=== PATIENT | female | born 2000 | race African-American/Black ===

== ENCOUNTER 2025-06-21 14:28 | Inpatient (IN) | payer BC, SELFPAY ==
--- NOTE | ~2025-06-21 | XR_ITS ---
EXAMINATION: XR chest 1V portable COMPARISON: No comparisons available. HISTORY: shortness of breath FINDINGS: Small basilar infiltrates and effusions most marked right lower lobe No pneumothorax. Heart is normal size. Mediastinal and hilar contours are within normal limits. Bony thorax no acute abnormality. Miscellaneous: None Impression: Bilateral pneumonia Reviewed, dictated and finalized at location P. Impression: Bilateral pneumonia
--- NOTE | ~2025-06-21 | US_ITS ---
EXAMINATION: US venous doppler [facility] DATE: 06/22/2025 09:38 INDICATION: Lower limb swelling and edema. TECHNIQUE: Grayscale ultrasound images without and with compression and Doppler ultrasound images of the bilateral lower extremity veins were obtained. COMPARISON: None. FINDINGS: The visualized portions of right common femoral vein, profunda (deep) femoral vein, femoral vein, popliteal vein, peroneal veins, posterior tibial veins, and greater saphenous vein outflow are patent. The visualized portions of left common femoral vein, profunda femoral vein, femoral vein, popliteal vein, peroneal veins, posterior tibial veins, and greater saphenous vein outflow are patent. IMPRESSION: 1. No deep venous thrombosis. Reviewed, dictated and finalized at location E.
--- NOTE | ~2025-06-21 | CT_ITS ---
EXAMINATION: CTA chest PE abdomen pel DATE: 06/22/2025 04:50 INDICATION: Shortness of breath. TECHNIQUE: Computed tomography angiography (CTA) of the chest was performed with 100 mL Omnipaque-350 intravenous contrast timed to evaluate the pulmonary arteries. Coronal maximum intensity projection 3D-reconstructions were created by the technologist. Computed tomography (CT) of the abdomen and pelvis was performed with intravenous contrast. Automated exposure control and iterative reconstruction technique were employed. The dose-length product was 1163.00 mGy-cm. COMPARISON: None. FINDINGS: CTA chest: The lungs demonstrate smooth septal thickening and scattered groundglass opacities and small airspace opacities. There is dependent atelectasis bilaterally. There are small pleural effusions. The heart size is normal. There is no pericardial effusion. There is no pulmonary embolus. The bones are unremarkable. CT abdomen and pelvis: Hepatic congestion is noted. Gallbladder wall thickening is likely secondary to interstitial edema. The spleen, pancreas, adrenal glands, and right kidney are normal. 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 There are no dilated loops of bowel. The appendix is normal. There are no pathologically enlarged lymph nodes. There is physiologic fluid in the pelvis. Body wall edema is noted. The bones are unremarkable. IMPRESSION: 1. Diffuse lung disease, consistent with moderate pulmonary edema without or with superimposed pneumonia. 2. Small pleural effusions. 3. No pulmonary embolus. Reviewed, dictated and finalized at location E. IMPRESSION: 1. Diffuse lung disease, consistent with moderate pulmonary edema without or wi th superimposed pneumonia. 2. Small pleural effusions. 3. No pulmonary embolus.
--- NOTE | ~2025-06-21 | US_ITS ---
Examination: Ultrasound of the retroperitoneum including kidneys and bladder. Clinical History: Acute renal failure . Comparison: None available. Findings: Right kidney: 10 cm. Normal echogenicity. No collecting system dilatation. No shadowing calculi. Left kidney: 10 cm. Normal echogenicity. No collecting system dilatation. No shadowing calculi. Urinary bladder: No wall thickening or focal abnormality. Bilateral ureteral jets seen. Pleural effusions. IMPRESSION: 1. No hydronephrosis. Reviewed, dictated and finalized at location R. IMPRESSION: 1. No hydronephrosis.
[2025-06-21 14:40] VITALS: BP 155/95; PULSE 78; RESP 18; TEMP 36.6; O2SAT 96
--- NOTE | 2025-06-21 15:49 | ECG_ITS ---
Test Date: 2025-06-21 15:56:44 Measurements Intervals [place] Rate: 61 P: -2 IN: 118 QRS: 34 QRSD: 74 T: 5 QT: 364 QTc: 367 Interpretive Statements SINUS RHYTHM WITH SHORT IN INTERVAL No previous ECG available for comparison Electronically Signed On 06-22-2025 20:45:36 CDT by Aly Schroeder D.O
--- NOTE | 2025-06-21 15:51 | ED.SOB ---
HPI - SOB/Dyspnea General Chief Complaint: Shortness of Breath/Dyspnea Stated Complaint: BLE AND DYSPNEA Time Seen by Provider: 06/21/25 15:37 Source: patient and RN notes reviewed Mode of arrival: ambulatory Limitations: no limitations History of Present Illness HPI Narrative: This is a 25 year old female previously healthy who presents for evaluation of bilateral ankle swelling and shortness of breath. She has noticed bilateral feet and ankle swelling since Monday , and she states the swelling does not improve with elevation. She reports pain today with walking. She also reports shortness of breath that is worse at night while she is sleeping since Monday. She also reports shortness of breath this morning with talking and getting ready today. She also reports constant chest heaviness since . She denies history of recent URI or fever. She denies history of heart disease. She denies history of drug use. She does admit to alcohol use on the weekends. Onset (ago): day(s) Related Data Allergies Allergy/AdvReac Type Severity Reaction Status Date / Time No Known Allergies Allergy Verified 06/21/25 14:31 COUNT INCLUDES THE [facility] Past Medical History Medical History (Updated 06/21/25 @ 18:06 by Hellen Samson MD) Patient denies medical problems Surgical History Surgical History (Updated 06/21/25 @ 15:57 by Hellen Samson MD) No pertinent past surgical history Social History Social History (Updated 06/21/25 @ 15:57 by Hellen Samson MD) Smoking status: Never smoker Alcohol intake: current Drinks per week: 3 Substance use: never Exam Const: General: no acute distress and alert Nutritional Appearance: well nourished Orientation/consciousness: patient oriented x3 Eyes: EOM: EOMs intact bilaterally Resp: Effort & Inspection: normal respiratory effort Auscultation: diminished lung sounds Cardio: Rate: regular rate Rhythm: regular rhythm Heart sounds: no murmurs GI: GI Palp: Yes Soft to palpation, No Tenderness to palpation present (GI) and No Guarding due to palpation present (GI) Auscultation: normal bowel sounds Skin: General skin exam: normal color Rashes: no rashes Wounds: no wounds Neuro: General: patient oriented x3, moves all extremities and CN's II-XI intact bilaterally Extrem: General: edema (bilateral nonpitting) Psych: Mental Status: mental status grossly normal Course Reevaluation(s) Reevaluation #1: I Discussed with patient and mother that she has signs of CHF. Chest xray shows mild pulmonary edema. She is being given 40 mg IV lasix for diuresis. I explained she will need to be admitted to hospital for further evaluation. Date: 06/21/25 Time: 18:03 Consultations Consultation #1: I Spoke with Naye SALAZAR for hospitalist. She accepts patient to service for new onset CHF Date: 06/21/25 Time: 18:03 Vital Signs Vital signs: Vital Signs Temperature 97.9 F 06/21/25 14:40 Pulse Rate 78 06/21/25 14:40 Respiratory Rate 18 06/21/25 14:40 Blood Pressure 155/95 H 06/21/25 14:40 Pulse Oximetry 96 06/21/25 14:40 Temperature 97.9 F 06/21/25 14:40 Pulse Rate 63 06/21/25 17:25 Respiratory Rate 23 H 06/21/25 17:25 Blood Pressure 171/98 H 06/21/25 17:25 Pulse Oximetry 96 06/21/25 17:25 MDM - SOB/Dyspnea Differential Diagnosis Differential diagnosis: Likely congestive heart failure and pulmonary embolism Lab Data Attestation: I reviewed the patient's lab results. 06/21/25 16:28 06/21/25 16:28 Labs: Lab Results 06/21/25 06/21/25 06/21/25 Range/Units 16:28 17:25 17:27 WBC 13.5 H (4.5-10.0) K/mm3 RBC 3.85 L (4.2-5.4) M/mm3 Hgb 10.0 L (12.0-15.0) g/dL Hct 31.9 L (37.0-47.0) % MCV 82.9 (80-100) fl MCH 26.0 (26-34) pg MCHC 31.3 L (32-36) g/dl RDW 15.2 H (11.5-14.5) % Plt Count 272 (150-375) k/mm3 MPV 10.9 H (7.4-10.4) fl Immature Gran % (Auto) 0.7 H (0-0.5) % Neut % (Auto) 68.8 (45.5-73.1) % Lymph % (Auto) 19.1 (18.3-44.2) % [place] % (Auto) 9.7 H (2.6-8.5) % Eos % (Auto) 1.3 (0-4.4) % Baso % (Auto) 0.4 (0.2-1.2) % Lymph # (Auto) 2.57 (0.9-3.2) K/mm3 [place] # (Auto) 1.3 H (0.1-0.6) K/mm3 Eos # (Auto) 0.2 (0-0.3) K/mm3 Baso # (Auto) 0.1 (0.0-0.1) K/mm3 Abs Immat Gran (auto) 0.10 H (0.00-0.031) K/mm3 Absolute Neuts (auto) 9.2 H (1.3-6.7) K/mm3 Absolute Nucleated RBC 0.000 (0.0-0.012) K/mm3 Nucleated RBC % 0.0 (0.0-0.2) % PT 13.2 (11.1-14.7) Seconds INR 1.0 APTT 34.2 (22.3-36.8) Seconds Sodium 136 L (137-145) mmol/L Potassium 4.2 (3.4-5.0) mmol/L Chloride 110 H (98-107) mmol/L Carbon Dioxide 19 L (22-30) mmol/L Anion Gap 7 (4-12) mmol/L BUN 29 H (7-17) mg/dL Creatinine 1.76 H (0.7-1.0) mg/dL Estim Creat Clear Calc 42 ml/min Estimated GFR 36 L (59 - ) Glucose 95 (65-110) mg/dL Calcium 8.5 (8.4-10.2) mg/dL Magnesium 2.2 (1.6-2.3) mg/dL Total Bilirubin 0.7 (0.2-1.3) mg/dL AST 29 (14-36) U/L ALT 23 (6-35) U/L Alkaline Phosphatase 84 (38-126) U/L Troponin I < 0.012 (0.000-0.034) ng/mL NT-Pro-B Natriuret Pep 2870 H (19.9-100) pg/mL Total Protein 7.7 (6.3-8.2) g/dL Albumin 3.8 (3.5-5.1) g/dL TSH (Reflex) 1.140 (0.465-4.68) uIU/mL Urine Color Pending Urine Appearance Pending Urine pH Pending Ur Specific [place] Pending Urine Protein Pending Urine Glucose (UA) Pending Urine Ketones Pending Ur Blood (Man) Pending Urine Nitrate Pending Urine Bilirubin Pending Urine Urobilinogen Pending Leukocyte Esterase Rfl Pending POC Urine HCG, Qual Negative (Negative) Urine Opiates Screen Negative (Negative) Urine Methadone Screen Negative (Negative) Ur Barbiturates Screen Negative (Negative) Ur Phencyclidine Scrn Negative (Negative) Ur Amphetamine Screen Negative (Negative) U Benzodiazepines Scrn Negative (Negative) Urine Cocaine Screen Negative (Negative) U Cannabinoids Screen Negative (Negative) ECG Data EKG #1: Attestation: I personally reviewed and interpreted this ECG as follows: ECG completion date: 06/21/25 ECG completion time: 15:56 EKG Interpretation: normal rate (61), sinus rhythm, normal QRS and NL axis Critical Care Time Critical Care Time Critical Care Time: Yes Total Critical Care Time: 35 Discharge Plan Discharge Clinical Impression: New onset of congestive heart failure Patient Disposition: Still a Patient Condition: Stable Patient Language: Slovak Follow-up/Referrals: PHYSICIAN NOT ON STAFF,NONSTAFF [Primary Care Provider]
[2025-06-21 15:58] VITALS: PULSE 77
[2025-06-21 16:40] LABS: Hematocrit 31.9 % (37.0-47.0); Hemoglobin 10.0 g/dL (12.0-15.0); Immature Granulocyte Percent A 0.7 % (0-0.5); Lymphocytes Absolute Auto 2.57 K/mm3 (0.9-3.2); Mean Corpuscular HGB Conc 31.3 g/dl (32-36); Mean Corpuscular Hemoglobin 26.0 pg (26-34); Mean Corpuscular Volume 82.9 fl (80-100); Nucleated Red Blood Cells Absolute Auto 0.000 K/mm3 (0.0-0.012); Nucleated Red Blood Cells Perc 0.0 % (0.0-0.2); Platelet Count Result 272 k/mm3 (150-375); Red Blood Count 3.85 M/mm3 (4.2-5.4); White Blood Count 13.5 K/mm3 (4.5-10.0)
[2025-06-21 16:44] LABS: INR 1.0; Partial Thromboplastin Time 34.2 Seconds (22.3-36.8); Prothrombin Time 13.2 Seconds (11.1-14.7)
[2025-06-21 16:48] LABS: Alanine Aminotransferase 23 U/L (6-35); Albumin Level 3.8 g/dL (3.5-5.1); Alkaline Phosphatase 84 U/L (38-126); Anion Gap 7 mmol/L (4-12); Aspartate Amino Transferase 29 U/L (14-36); Bilirubin,Total 0.7 mg/dL (0.2-1.3); Blood Urea Nitrogen 29 mg/dL (7-17); Calcium 8.5 mg/dL (8.4-10.2); Carbon Dioxide 19 mmol/L (22-30); Chloride 110 mmol/L (98-107); Estimated CRCL calculation 42 ml/min; Estimated Glomerular Filt Rate 36; Glucose 95 mg/dL (65-110); Magnesium 2.2 mg/dL (1.6-2.3); Potassium 4.2 mmol/L (3.4-5.0); Sodium 136 mmol/L (137-145); Total Protein 7.7 g/dL (6.3-8.2)
[2025-06-21 17:01] LABS: NT Pro B Type Natriuretic Pept 2870 pg/mL (19.9-100); Troponin I < 0.012 ng/mL (0.000-0.034)
[2025-06-21 17:19] LABS: Thyroid Stimulating Hormone Reflex 1.140 uIU/mL (0.465-4.68)
[2025-06-21 17:25] VITALS: BP 171/98; PULSE 63; RESP 23; O2SAT 96
[2025-06-21] MEDS: FUROSEMIDE INJ 40 MG/4 ML VIAL IV PUSH (17:26)
[2025-06-21 17:29] LABS: BEDSIDEPREGUCG Negative (Negative)
[2025-06-21 17:56] LABS: Cannabinoid Screen Urine Negative (Negative)
[2025-06-21 18:08] LABS: Add Urine Microscopic? YES; Appearance Urine Turbid (Clear); Glucose Urine UA Negative (Negative); Leukocyte Esterase Ur 3+ LEU/UL (Negative); Nitrate Urine Negative (Negative); Non Pathogenic Casts >20; Specific Grav Ur 1.033 (1.001-1.035)
[2025-06-21 20:51] VITALS: BP 142/99; PULSE 74; RESP 22; O2SAT 98
[2025-06-21 21:35] VITALS: BP 155/73; PULSE 76; RESP 18; TEMP 36.6; O2SAT 95
[2025-06-21 21:52] VITALS: BMI 37.4
--- NOTE | 2025-06-21 22:29 | ECG_ITS ---
Test Date: 2025-06-21 22:40:06 Measurements Intervals [place] Rate: 73 P: 52 [place]: 128 QRS: 27 QRSD: 90 T: 5 QT: 362 QTc: 401 Interpretive Statements SINUS RHYTHM Electronically Signed On 06-22-2025 20:48:08 CDT by Aly Schroeder D.O
[2025-06-21 23:27] LABS: CRP 5.9 mg/dL (<1.0); Creatine Kinase 142 U/L (30-135)
[2025-06-21 23:27] LABS: Troponin I < 0.012 ng/mL (0.000-0.034)
[2025-06-21] MEDS: MORPHINE SULFATE (*CRX) 4 MG/ML INJ 2 MG IV PUSH (23:27)
[2025-06-22] VITALS (9 sets, daily range): BP systolic 133–164; BP diastolic 79–87; PULSE 71–89; RESP 16–18; TEMP 36.3–37.6; O2SAT 93–94
--- NOTE | 2025-06-22 01:00 | PM.IMHP ---
H&P: HPI History of Present Illness Date/Time: 06/22/25 01:00 Chief Complaint: Shortness of breath breath and leg swelling for 3 days Narrative: 25 year female with no known past medical history of obesity who presented to the ER with 3 days of shortness of breath and lower extremity swelling. The patient provided the majority history. Her mother was at bedside with the patient's permission. The patient reports that on Monday night she started with some shortness of breath with activity. On she developed acute swelling of her lower extremities and by early Monday morning she developed orthopnea paroxysmal nocturnal dyspnea. Her legs continued to swell to the point that her ankles were painful due to being tight. She stated that between and Monday she began having generalized body aches and just hurt all over. She denied having any fevers or chills. She denies any recent viral symptoms, sore throat antibiotic or NSAID use. She did develop a mild cough but only after orthopnea and paroxysmal nocturnal dyspnea had set in. She did buy some [id number] Mucinex which did not help her symptoms. She reports that her chest feels tight like she cannot take a deep breath but denies any true chest pain. In the ER her troponin was negative chest x-ray was suggestive of pulmonary edema. BMP demonstrated acute kidney injury. Her UA demonstrated 3+ proteinuria. She denied any change in urinary frequency urgency and denied hematuria or foamy urine. She reports tachycardia it started after her shortness of breath had gotten severe. Despite not sleeping well and her symptoms she still went to work. She reports some headache but no vision changes. She has regular menstrual cycles with her last menstrual stool cycle starting on June 01 in lasting 5 days. She reports that her menstrual cycles start out moderate to heavy saturating 5-6 pads a day but he is off for dizzy and. The patient reports that the only other time she has ever been hospitalized when she was around 14 or 16 years old when she had a cyst that ruptured in her abdomen. I am assuming that she had a ovarian cyst. Both her and her mother stated that the patient did not have any surgery for that. Review of Systems Review of Systems: 12 systems were reviewed with pertinent positives and negatives per HPI. Except as documented in the HPI, all other systems were reviewed and are negative. [facility] Past Medical History Medical History (Updated 06/22/25 @ 15:42 by Zenia Izquierdo MD) Obesity (BMI 30.0-34.9) Surgical History Surgical History (Updated 06/22/25 @ 08:48 by Millicent Faye DO) No history of previous surgery Social History Social History (Updated 06/22/25 @ 09:14 by Millicent Faye DO) Social History: She is single. She does not have any children. She lives at home with her mother. She works as a blood bank worker. She drinks heavily on the weekends up to a pint and drinks several shots throughout the course of the week. She smokes Hooka once week or once every other week. She denies illicit substance use. Code status: Full code Surrogate decision maker: Mother Smoking status: Current some day smoker Additional smoking assessment comments: Hookah once or twice a week. Alcohol intake: current Drinks per week: 9 Alcohol use details: The patient drinks about a pt or more of alcohol during the course of a week. She she drinks quite heavily on the weekends and drinks a couple of shots throughout the week. Substance use: never Substance use type: does not use Lack of Transportation: YES Lack of Food: Never True Current Housing: I Have Housing Concerned About Future Housing: No Difficulty Paying Gas/Electric Bills: No Difficulty Paying for Meds: No Currently Unemployed: No Education: High School Diploma/GED Difficulty w/ Childcare or Family Care: No Spiritual care concerns: No Meds Home Medications and Allergies Home Medications ?Medication ?Instructions ?Recorded ?Confirmed ?Type No Home Medications 06/21/25 06/21/25 History Allergies Allergy/AdvReac Type Severity Reaction Status Date / Time No Known Allergies Allergy Verified 06/21/25 21:51 Vital Signs Vital Signs - 24 hr 06/21/25 14:40 06/21/25 15:58 06/21/25 17:25 Temperature 97.9 F Pulse Rate 78 77 63 Respiratory Rate 18 23 H Blood Pressure 155/95 H 171/98 H Pulse Oximetry 96 96 Oxygen Delivery 06/21/25 20:50 06/21/25 20:51 06/21/25 21:35 Temperature 97.8 F Pulse Rate 74 76 Respiratory Rate 22 H 18 Blood Pressure 142/99 H 155/73 H Pulse Oximetry 98 95 Oxygen Delivery Room Air Exam Narrative: Weight 89.8 kg BMI 37.4 Const: Other: Obese, no acute distress, well groomed, appears stated age HENMT: Other: Mucous membranes are moist, no oral pharyngeal erythema, crowded posterior oropharynx Eyes: Other: No periorbital edema, pupils are equal and reactive, no scleral icterus Neck: Other: No JVD, no lymphadenopathy, large neck circumference Resp: Other: Clear to auscultation bilaterally, no increased work of breathing Cardio: Other: Regular rate, regular rhythm, 2+ bilateral radial pedal pulses, no JVD GI: Other: Distended, hepatomegaly, soft, abdominal wall edema, nontender Skin: Other: No jaundice, no pallor, had a tattoo to the right wrist and hand Neuro: Other: Alert oriented x4, speech clear, no facial asymmetry, no localizing neurologic deficits noted during the course of conversation Extrem: Other: 1+ pitting edema to bilateral ankles and feet Psych: Other: Appropriate mood and affect, pleasant and cooperative, judgment insight intact H&P: Results Labs Labs: Laboratory Tests 06/21/25 16:28 06/21/25 16:28 06/21/25 06/21/25 06/21/25 16:28 17:25 17:27 WBC 13.5 H RBC 3.85 L Hgb 10.0 L Hct 31.9 L MCV 82.9 MCH 26.0 MCHC 31.3 L RDW 15.2 H Plt Count 272 MPV 10.9 H Immature Gran % (Auto) 0.7 H Neut % (Auto) 68.8 Lymph % (Auto) 19.1 [place] % (Auto) 9.7 H Eos % (Auto) 1.3 Baso % (Auto) 0.4 Lymph # (Auto) 2.57 [place] # (Auto) 1.3 H Eos # (Auto) 0.2 Baso # (Auto) 0.1 Abs Immat Gran (auto) 0.10 H Absolute Neuts (auto) 9.2 H Absolute Nucleated RBC 0.000 Nucleated RBC % 0.0 ESR PT 13.2 INR 1.0 APTT 34.2 D-Dimer Sodium 136 L Potassium 4.2 Chloride 110 H Carbon Dioxide 19 L Anion Gap 7 BUN 29 H Creatinine 1.76 H Estim Creat Clear Calc 42 Estimated GFR 36 L Glucose 95 Calcium 8.5 Phosphorus Magnesium 2.2 Total Bilirubin 0.7 AST 29 ALT 23 Alkaline Phosphatase 84 Total Creatine Kinase Troponin I < 0.012 C-Reactive Protein NT-Pro-B Natriuret Pep 2870 H Total Protein 7.7 Albumin 3.8 TSH (Reflex) 1.140 Urine Color Dark yellow Urine Appearance Turbid H Urine pH 5.5 Ur Specific [place] 1.033 Urine Protein 3+ H Urine Glucose (UA) Negative Urine Ketones 1+ H Ur Blood (Man) 3+ H Urine Nitrate Negative Urine Bilirubin 1+ H Urine Urobilinogen 1.0 Leukocyte Esterase Rfl 3+ H Urine RBC 11-20 H Urine WBC >100 H Ur Squamous Epith Cells Moderate Urine Bacteria 1+ H Urine Casts >20 WBC Casts Present H POC Urine HCG, Qual Negative Urine Opiates Screen Negative Urine Methadone Screen Negative Ur Barbiturates Screen Negative Ur Phencyclidine Scrn Negative Ur Amphetamine Screen Negative U Benzodiazepines Scrn Negative Urine Cocaine Screen Negative U Cannabinoids Screen Negative 06/21/25 06/21/25 22:53 22:57 WBC RBC Hgb Hct MCV MCH MCHC RDW Plt Count MPV Immature Gran % (Auto) Neut % (Auto) Lymph % (Auto) [place] % (Auto) Eos % (Auto) Baso % (Auto) Lymph # (Auto) [place] # (Auto) Eos # (Auto) Baso # (Auto) Abs Immat Gran (auto) Absolute Neuts (auto) Absolute Nucleated RBC Nucleated RBC % ESR 50 H PT INR APTT D-Dimer 1.34 H Sodium Potassium Chloride Carbon Dioxide Anion Gap BUN Creatinine Estim Creat Clear Calc Estimated GFR Glucose Calcium Phosphorus 5.0 H Magnesium Total Bilirubin AST ALT Alkaline Phosphatase Total Creatine Kinase 142 H Troponin I < 0.012 C-Reactive Protein 5.9 H NT-Pro-B Natriuret Pep Total Protein Albumin TSH (Reflex) Urine Color Urine Appearance Urine pH Ur Specific [place] Urine Protein Urine Glucose (UA) Urine Ketones Ur Blood (Man) Urine Nitrate Urine Bilirubin Urine Urobilinogen Leukocyte Esterase Rfl Urine RBC Urine WBC Ur Squamous Epith Cells Urine Bacteria Urine Casts WBC Casts POC Urine HCG, Qual Urine Opiates Screen Urine Methadone Screen Ur Barbiturates Screen Ur Phencyclidine Scrn Ur Amphetamine Screen U Benzodiazepines Scrn Urine Cocaine Screen U Cannabinoids Screen Impressions Chest X-Ray 06/21/25 16:29 Impression: Bilateral pneumonia Assessment and Plan Assessment and plan (1) New onset of congestive heart failure: Code(s): I50.9 - Heart failure, unspecified Status: Acute (2) Acute kidney injury: Code(s): N17.9 - Acute kidney failure, unspecified Status: Acute (3) Proteinuria: Qualifiers: Proteinuria type: unspecified Qualified Code(s): R80.9 - Proteinuria, unspecified Code(s): R80.9 - Proteinuria, unspecified Status: Acute (4) Leukocytosis: Qualifiers: Leukocytosis type: unspecified Qualified Code(s): D72.829 - Elevated white blood cell count, unspecified Code(s): D72.829 - Elevated white blood cell count, unspecified Status: Acute (5) Elevated blood pressure reading: Code(s): R03.0 - Elevated blood-pressure reading, without diagnosis of hypertension Status: Acute (6) Pleural effusion: Code(s): J90 - Pleural effusion, not elsewhere classified Status: Acute (7) Hepatomegaly: Code(s): R16.0 - Hepatomegaly, not elsewhere classified Status: Acute Plan The patient presents with new onset pleural effusions and lower extremity edema concerning for CHF. On my review the x-ray she does not have overt cardiomegaly. High EKG does not demonstrate any evidence of cardiac ischemia and troponins were negative. Patient has not had any recent viral symptoms to suggest myocarditis. CK is mildly elevated and patient has associated acute kidney injury with 3+ proteinuria. Given these factors I did check inflammatory markers including ESR and CRP which were elevated as well as an elevated D-dimer. In this setting in given the patient's acute onset of symptoms her age and lab findings suspicious for acute autonomic process. Such as lupus, vasculitis or glomerular nephritis. Postinfectious or infectious endocarditis or glomerular nephritis could also be a possibility but patient does not have any murmur, fevers, chills, history of IV drug use that would make her at increased risk. Subsequently autoimmune workup has been ordered including antinuclear antibody, anti glomerular douglas basement membrane anti double-stranded DNA, antineutrophil antibodies complement levels, urine, immunofixation, rheumatoid factor, SM and SM ALLEY CLEANER antibody. The patient's D-dimer was elevated with an the patient was reporting abdominal distension uploading. Subsequently CT a chest abdomen pelvis has been ordered. Stat read interpretation was not yet available at the end of my shift but on my review of the imaging the patient had bilateral pleural effusions with findings consistent with pulmonary edema no obvious large pulmonary embolism, likely hepatomegaly and possible splenomegaly and relatively normal appearing kidneys. No obvious pneumonia to suggest acute infection but will still check antistreptolysin antibodies. Also check for urine eosinophils. Renal ultrasound has been ordered but cannot be performed due to the weekend. Will consult Nephrology. Patient was started on IV Lasix the patient is a lower extremity swelling has improved but she still is reporting significant orthopnea paroxysmal nocturnal dyspnea. Will continue IV Lasix 40 mg IV b.i.d. and strict I&O's. Echocardiogram has been ordered 0 will not be performed until Monday. As the primary cause of the patient's heart failure is not likely due to cardiac ischemia or cardiac arrhythmia no need to consult Cardiology immediately. We need to treat the underlying cause I evaluating underlying autoimmune process. Patient does have anemia in baseline hemoglobin is not unknown. Will check ferritin, TIBC, B12 and folic acid levels. Will repeat CBC and electrolyte panel in a.m.. Over 2 hours was spent in patient care with greater than 50% of time at the bedside discussing plan and management with the patient and her mother. All questions were answered. Patient has been admitted as observation status. MEDICAL DECISION MAKING NARRATIVE -Spoke with the ED provider in detail regarding patient's evaluation, workup and management -Patient seen and examined at bedside -Collaborated with patient's nurse at the bedside in detail and addressed all concerns -Labs, electrolytes, radiology, investigations and test results personally reviewed and interpreted unless otherwise specified -ED/Consult/Nursing/Ancilliary notes on the chart reviewed and appreciated -Spoke with patient at bedside and diagnosis and plan of care was discussed. All questions answered. Quality VTE Prophylaxis VTE prophylaxis: pharmacologic ordered (Lovenox 40 mg subQ daily.) Hospitalist [facility] Advance Care Plan I have confirmed that the patient's Advanced Care Plan is present, code status is documented, or surrogate decision maker is listed in patient medical record.: Yes Medication Reconciliation I have utilized all available resources to obtain, update and review the patients current medications (includes all prescriptions, OTC, herbals, cannabis, and nutritional supplements).: Yes
[2025-06-22 06:42] LABS: Hematocrit 29.3 % (37.0-47.0); Hemoglobin 9.1 g/dL (12.0-15.0); Mean Corpuscular HGB Conc 31.1 g/dl (32-36); Mean Corpuscular Hemoglobin 26.2 pg (26-34); Mean Corpuscular Volume 84.4 fl (80-100); Platelet Count Result 279 k/mm3 (150-375); Red Blood Count 3.47 M/mm3 (4.2-5.4); White Blood Count 12.3 K/mm3 (4.5-10.0)
[2025-06-22 06:50] LABS: HIV 1/2 Ab P24 Ag Result Negative (Negative)
[2025-06-22 07:02] LABS: Albumin Level 3.1 g/dL (3.5-5.1); Anion Gap 8 mmol/L (4-12); Blood Urea Nitrogen 30 mg/dL (7-17); Calcium 8.0 mg/dL (8.4-10.2); Carbon Dioxide 18 mmol/L (22-30); Chloride 108 mmol/L (98-107); Estimated CRCL calculation 49 ml/min; Estimated Glomerular Filt Rate 39; Glucose 89 mg/dL (65-110); Potassium 4.3 mmol/L (3.4-5.0); Sodium 134 mmol/L (137-145)
[2025-06-22 08:23] LABS: Hepatitis B Surface Antigen Negative (Negative)
[2025-06-22 08:28] LABS: Hepatitis B Core IgM Result Negative (Negative)
[2025-06-22 08:40] LABS: Hepatitis B Surface Anti Res Negative
[2025-06-22] MEDS: FUROSEMIDE INJ 40 MG/4 ML VIAL IV PUSH ×2 (08:43→20:04)
[2025-06-22] MEDS: ENOXAPARIN 40 MG/0.4 ML SYRINGE SUB-Q (08:43)
[2025-06-22] MEDS: ACETAMINOPHEN 325 MG TABLET 650 MG PO (08:47)
[2025-06-22 09:31] LABS: Urine Eos QC 2nd Tech Confirmed
[2025-06-22 09:40] LABS: Iron 19 ug/dL (37-170)
[2025-06-22 09:50] LABS: Percent Iron Saturation 6 % (20-50)
[2025-06-22 10:12] LABS: Vitamin B12 413.0 pg/mL (239-931)
[2025-06-22 10:21] LABS: Ferritin 35.50 ng/mL (6.24-137)
[2025-06-22 10:58] LABS: Total Protein Urine Random 53 mg/dL; Ur Ttl Prot Creatinine Ratio 0.21 mg/mg (0-0.20)
[2025-06-22 11:00] LABS: Urea Random Urine 771 MG/DL
--- NOTE | 2025-06-22 11:18 | P.CONNP_ITS ---
Assessment and Plan Assessment and plan (1) Acute kidney injury: Code(s): N17.9 - Acute kidney failure, unspecified Status: Acute Assessment and Plan: * presumably normal baseline renal function * etiology not clear: * new CHF * inflammatory disorder (autoimmune disease/vasculitis/glomerulonephritis?) * other(?) * evaluation to date noted: * renal ultrasound normal * urine electrolytes prerenal * urine eosinophils negative * UA with blood and protein along with possible infection * only 210mg of proteinuria * elevated ESR and CRP * low C3, and negative RF * majority of serologies pending * depending on trend of creatinine and serological testing, may need to consider renal biopsy * follow trend of repeat labs and UOP (2) Volume overload: Code(s): E87.70 - Fluid overload, unspecified Status: Acute Assessment and Plan: * etiology(?): * due to CHF * from kidney failure * other(?) * follow-up on Echo * on IV diuretics * follow I/Os, clinical exam, and respiratory status (3) Pleural effusion: Code(s): J90 - Pleural effusion, not elsewhere classified Status: Acute Assessment and Plan: * as noted on admission imaging * follow serial CXRs (4) New onset of congestive heart failure: Code(s): I50.9 - Heart failure, unspecified Status: Acute Assessment and Plan: * suggested by admission imaging/testing/exam: * CXR/CT with pleural effusions and pulmonary edema * elevated BNP * LE edema present * SOB with orthopnea + PND * Echo ordered * on IV diuretics * follow I/Os and daily weights * consider Cardiology consultation depending on Echo results... (5) Anemia: Code(s): D64.9 - Anemia, unspecified Status: Acute Assessment and Plan: * due to renal dysfunction versus acute ilness... * anemia studies consistent with iron deficiency * follow trend of H/H (6) Urinary tract infection: Code(s): N39.0 - Urinary tract infection, site not specified Status: Acute Assessment and Plan: * admission UA suggestive * however, no clinical symptoms * follow culture data * holding off on antibiotic therapy (7) Elevated blood pressure reading: Code(s): R03.0 - Elevated blood-pressure reading, without diagnosis of hypertension Status: Acute Assessment and Plan: * as noted on admission * may improve with diuresis * follow trend of hemodynamics (8) Leukocytosis: Qualifiers: Leukocytosis type: unspecified Qualified Code(s): D72.829 - Elevated white blood cell count, unspecified Code(s): D72.829 - Elevated white blood cell count, unspecified Status: Acute Assessment and Plan: * due to possible underlying infection versus stress response? * follow culture data * r/o infection * no antibiotics at this time I will continue to follow the patient with you while she remains hospitalized and make further recommendations as deemed necessary. Thank you for allowing me to participate in the care of this patient. L History of Present Illness Reason for Consult Consult date: 06/22/25 Reason for consult: acute renal failure Chief Complaint Chief complaint: New onset CHF History of Present Illness Narrative: The patient is a 25-year-old female with no significant past medical history who presented to [facility] Emergency Room with complaints of shortness of breath. The patient states that her shortness of breath seemed to start approximately 3 - 4 days ago. Initially, the shortness of breath was present with exertional activity but then progressed to shortness of breath at rest. Her shortness of breath was associated with acute swelling of her lower extremities and then the development of orthopnea as well as paroxysmal nocturnal dyspnea. Her lower extremities continued to swell to the point where she had pain / discomfort due to skin tightness. Other associated symptoms include generalized body aches but no reported fevers, chills, nausea, vomiting, abdominal pain, or diarrhea. Along with the shortness of breath at rest as well as with exertion, she also complains of some chest tightness and having difficulty taking a deep breath as well. Do these constellation of symptoms as well as the fact that they seem to be progressively getting worse, she came to the ER for further assessment Workup and evaluation emergency room demonstrated the patient to be hemodynamically stable if not a bit hypertensive (150s to 170 systolic) and afebrile with stable oxygenation. Routine blood test demonstrated white blood cell count of 13.5, hemoglobin 10.0, platelet count of 272, sodium 136, potassium 4.2, bicarb 19, BUN 29, creatinine 1.76, glucose 95, calcium 8.5, magnesium 2.2, normal LFTs, normal troponin, proBNP of 2870, and albumin of 3.8. Her urine drug screen was negative and her urinalysis was significant for turbid appearance, 3+ protein, 3+ blood, 1+ ketones, 1+ bilirubin, greater than 100 white blood cells, 11-20 red blood cells, 1+ bacteria, in the presence of white blood cell casts. Her chest x-ray showed small basilar infiltrates and effusions most marked in the right lower lobe concerning for bilateral pneumonia. A subsequent CTA of the chest/abdomen/pelvis was done with findings significant for diffuse lung disease consistent with moderate pulmonary edema with or without superimposed pneumonia, small pleural effusions, and no evidence of a pulmonary embolism. given these laboratory and imaging findings in association with her physical exam with bibasilar crackles and nonpitting lower extremity edema, it was felt that she was in CHF and she was initiated on IV diuretic therapy and subsequently admitted to the hospital for further evaluation and therapy. Since her admission, her renal function has slightly improved in spite of the use of IV diuretics but there is concern that there may be some type of inflammatory disorder affecting her kidneys given her elevated inflammatory markers (ESR and CRP) in conjunction with her proteinuria and hematuria by urinalysis. Renal consultation was requested due to her presumed acute kidney injury/acute renal failure. As far as the patient is aware, she has never had any issues or problems her kidneys or Desi never been told as such. Unfortunately, I have no previous labs to compare to with regard to her kidney function. Her admission creatinine was 1.76 mg/dL with repeat labs this morning demonstrated creatinine of 1.65 mg/dL in spite of IV diuretic therapy. She states that her breathing appears to be doing somewhat better since her admission. A significant serological workup has been ordered given the concern for possible inflammatory disorder within her kidneys and a great deal of these tests are still pending. Furthermore, given the concern for CHF, an echocardiogram has been ordered as well for further assessment. Currently, at the time my evaluation, she appears to be in no acute distress. She states her swelling/edema is better but still has some PYLE. Review of Systems 2 Review of Systems: As per HPI. [facility] Past Medical History Medical History (Updated 06/22/25 @ 15:42 by Zenia Izquierdo MD) Obesity (BMI 30.0-34.9) Surgical History Surgical History (Updated 06/22/25 @ 08:48 by Millicent Faye DO) No history of previous surgery Social History Social History (Updated 06/22/25 @ 09:14 by PEREZ Solano Social History: She is single. She does not have any children. She lives at home with her mother. She works as a personal banking assistant. She drinks heavily on the weekends up to a pint and drinks several shots throughout the course of the week. She smokes Hooka once week or once every other week. She denies illicit substance use. Code status: Full code Surrogate decision maker: Mother Smoking status: Current some day smoker Additional smoking assessment comments: Hookah once or twice a week. Alcohol intake: current Drinks per week: 9 Alcohol use details: The patient drinks about a pt or more of alcohol during the course of a week. She she drinks quite heavily on the weekends and drinks a couple of shots throughout the week. Substance use: never Substance use type: does not use Lack of Transportation: YES Lack of Food: Never True Current Housing: I Have Housing Concerned About Future Housing: No Difficulty Paying Gas/Electric Bills: No Difficulty Paying for Meds: No Currently Unemployed: No Education: High School Diploma/GED Difficulty w/ Childcare or Family Care: No Spiritual care concerns: No Meds Home Medications and Allergies Home Medications ?Medication ?Instructions ?Recorded ?Confirmed ?Type No Home Medications 06/21/25 06/21/25 H istory Allergies Allergy/AdvReac Type Severity Reaction Status Date / Time No Known Allergies Allergy Verified 06/21/25 21:51 Vital Signs Vital Signs Temp Pulse Resp BP Pulse Ox O2 Del Method 06/22/25 08:00 71 06/22/25 06:15 97.3 F L 88 18 164/87 H 94 06/22/25 04:00 77 06/22/25 00:00 79 06/21/25 21:35 97.8 F 76 18 155/73 H 95 06/21/25 20:51 74 22 H 142/99 H 98 06/21/25 20:50 Room Air 06/21/25 17:25 63 23 H 171/98 H 96 06/21/25 15:58 77 Exam 2 Narrative: GENERAL APPEARANCE: well developed well nourished female in no acute distress HEENT: normocephalic, atraumatic, normal conjunctiva and sclera, nares patient NECK: no lymphadenopathy, thyromegaly, or JVD MOUTH: normal lips, teeth, and gums CARDIOVASCULAR: RRR, normal S1 and S2, no rub RESPIRATORY: decreased at bases with a few crackles noted ABDOMEN: soft, nontender, nondistended, positive bowel sounds present EXTREMITIES: no evidence of cyanosis, clubbing, ++ edema NEUROLOGICAL: alert and oriented x 3; CN II - XII intact bilaterally; no focal deficits noted Results Lab Results 06/22/25 06:08 06/22/25 06:10 Lab results: Most recent lab results Calcium 8.0 mg/dL (8.4-10.2) L 06/22/25 06:10 Phosphorus 5.5 mg/dL (2.5-4.5) H 06/22/25 06:10 Magnesium 2.2 mg/dL (1.6-2.3) 06/21/25 16:28 Urine Creatinine 252.4 mg/dL 06/22/25 09:55
--- NOTE | 2025-06-22 16:09 | PM.IMPN ---
Progress Note: A&P Assessment and Plan (1) Volume overload: Code(s): E87.70 - Fluid overload, unspecified Status: Acute Assessment and Plan: The patient presents with SOB and fluid overload. CXR showing bilateral PNA CTA Ch/Abd/pelvis showing diffuse lung disease c/w pulm edema and possible PNA with small pleural effusions, No PE. EKG showing short MO interval but otherwise normal Troponin negative x2. BNP 2870. TCK 142. No recent viral symptoms to suggest myocarditis. Could be related to ERIC. Echo ordered. Patient started on IV Lasix. UOP not being measured. Strict I/Os. Daily weights. Consider cardiology consult. (2) Acute kidney injury: Code(s): N17.9 - Acute kidney failure, unspecified Status: Acute Assessment and Plan: Cr elevated at 1.76 with BUN 29. Metabolic nongap acidosis noted felt related to under secretion of acids most likely. UA showing 3+ protein, 1+ ketones, 3+ blood (11=20 RBCs), 3+ LE, >100 WBC. UPreg negative. UPr/Cr 0.21gm. FEurea 17%. HIV negative. Hepatitis panel negative. C3 <40 and C4 27. RF <12. UDS negative. PT/PTT normal. ESR 50. DDimer positive at 1.34 -> CTA negative for PE; Doppler negative for DVT. DAWN, ANCA, etc pending. Consider SLE, post-strep GN, IgA nephropathy, rapidly progressive GN. Vasculitis induced GN. Consider also infectious endocarditis Renal US showing normal findings. Nephrlogy consult. patietn will need renal biopsy. Check BCx. (3) Proteinuria: Qualifiers: Proteinuria type: unspecified Qualified Code(s): R80.9 - Proteinuria, unspecified Code(s): R80.9 - Proteinuria, unspecified Status: Acute Assessment and Plan: As above (4) Leukocytosis: Qualifiers: Leukocytosis type: unspecified Qualified Code(s): D72.829 - Elevated white blood cell count, unspecified Code(s): D72.829 - Elevated white blood cell count, unspecified Status: Acute Assessment and Plan: WBC elevated on admission. UA noted and would consider UTI bit she denies symptoms. WBC better on repeat. Check BCx Hold off on abx (5) Elevated blood pressure reading: Code(s): R03.0 - Elevated blood-pressure reading, without diagnosis of hypertension Status: Acute Assessment and Plan: BP noted on admission felt related to above. Lasix started with good UOP BP better Follow (6) Anemia: Code(s): D64.9 - Anemia, unspecified Status: Acute Assessment and Plan: Patient with Hgb 10 on admission. Not clear if she has a baseline anemia and/or related to above. B12/Folate normal. Iron low at 19, normal TIBC and ISat 6%. Ferritin low end of normal at 35 consisent with iron deficiency anemia. Follow HH for now Transfuse to stable Hgb Plan DVT Prophylaxis - lovenox Code status - full Subjective Date/time seen: 06/22/25 16:09 Interval history: 25 year female with no known past medical history of obesity who presented to the ER with 3 days of shortness of breath and lower extremity swelling. No recent illnesses. No recent abx use. Has 'whle bod' pain and headache. Ankle tightness is better today. Still PYLE when walking back from the bathroom. Noted increasing UOP. No gross hematuria. No family hx of kidney disease. Exam Narrative: AF 97.3 133/81 80 16 93% ra Gen - NARD Chest - decreased BS in the bases. CV - RRR S1/S2 Abd - Soft, NT/ND, Positive BS Ext - No pedal edema Neuro - Alert and oriented. Nonfocal exam. Psych - Nml mood and affect Skin - Warm and dry Objective Data Vital Signs Vital Signs: Vital Signs - 24 hr 06/21/25 17:25 06/21/25 20:50 06/21/25 20:51 Temperature Pulse Rate 63 74 Respiratory Rate 23 H 22 H Blood Pressure 171/98 H 142/99 H Pulse Oximetry 96 98 Oxygen Delivery Room Air 06/21/25 21:35 06/22/25 00:00 06/22/25 04:00 Temperature 97.8 F Pulse Rate 76 79 77 Respiratory Rate 18 Blood Pressure 155/73 H Pulse Oximetry 95 Oxygen Delivery 06/22/25 06:15 06/22/25 08:00 06/22/25 12:00 Temperature 97.3 F L Pulse Rate 88 71 89 Respiratory Rate 18 Blood Pressure 164/87 H Pulse Oximetry 94 Oxygen Delivery 06/22/25 13:50 Temperature 97.3 F L Pulse Rate 80 Respiratory Rate 16 Blood Pressure 133/81 Pulse Oximetry 93 Oxygen Delivery Intake/Output Intake/Output: Intake & Output 06/19/25 06/20/25 06/21/25 06/22/25 23:59 23:59 23:59 23:59 Intake Total 350 Balance 350 Meds/Results Medications: Active Medications Generic Name Dose Route Start Last Admin Trade Name Freq PRN Reason Stop Dose Admin Acetaminophen 650 mg 06/21/25 23:24 06/22/25 08:47 Acetaminophen 325 Mg Tablet PO 650 mg Q4H PRN Administration Mild Pain (1-3) or Fever Calcium Carbonate 200 mg 06/21/25 23:24 Calcium Carbonate (Tums) 500 Mg (200 Mg Elemental) PO Q6H PRN Indigestion Enoxaparin Sodium 40 mg 06/22/25 09:00 06/22/25 08:43 Enoxaparin 40 Mg/0.4 Ml Syringe SUB-Q 40 mg DAILY SHANTELL Administration Furosemide 40 mg 06/22/25 09:00 06/22/25 08:43 Furosemide Inj 40 Mg/4 Ml Vial IV PUSH 40 mg Q12HR SHANTELL Administration Morphine Sulfate 2 mg 06/21/25 22:46 06/21/25 23:27 Morphine Sulfate (*Crx) 4 Mg/Ml Inj IV PUSH 2 mg Q4H PRN Administration Pain Rated 7-10 Perflutren Lipid Microsphere 0 ml 06/21/25 17:58 Perflutren Lipid Microspheres 1.5 Ml Vial Diluted To 10 Ml Total Volume IV PUSH 06/24/25 18:01 ONCE PRN adequate visualization Protocol Radiology Results: ITS Impressions Chest X-Ray 06/21/25 16:29 Impression: Bilateral pneumonia Chest/Abdomen/Pelvis CTA 06/22/25 08:22 IMPRESSION: 1. Diffuse lung disease, consistent with moderate pulmonary edema without or with superimposed pneumonia. 2. Small pleural effusions. 3. No pulmonary embolus. Venous Doppler Study 06/22/25 09:38 IMPRESSION: 1. No deep venous thrombosis. Renal Ultrasound 06/22/25 09:39 IMPRESSION: 1. No hydronephrosis. Labs Labs: Laboratory Results - last 24 hr 06/21/25 06/21/25 06/21/25 16:28 17:25 17:27 WBC 13.5 H RBC 3.85 L Hgb 10.0 L Hct 31.9 L MCV 82.9 MCH 26.0 MCHC 31.3 L RDW 15.2 H Plt Count 272 MPV 10.9 H Immature Gran % (Auto) 0.7 H Neut % (Auto) 68.8 Lymph % (Auto) 19.1 [facility] % (Auto) 9.7 H Eos % (Auto) 1.3 Baso % (Auto) 0.4 Lymph # (Auto) 2.57 [facility] # (Auto) 1.3 H Eos # (Auto) 0.2 Baso # (Auto) 0.1 Abs Immat Gran (auto) 0.10 H Absolute Neuts (auto) 9.2 H Absolute Nucleated RBC 0.000 Nucleated RBC % 0.0 ESR PT 13.2 INR 1.0 APTT 34.2 D-Dimer Sodium 136 L Potassium 4.2 Chloride 110 H Carbon Dioxide 19 L Anion Gap 7 BUN 29 H Creatinine 1.76 H Estim Creat Clear Calc 42 Estimated GFR 36 L Glucose 95 Serum Osmolality Calcium 8.5 Phosphorus Magnesium 2.2 Iron TIBC % Saturation Ferritin Total Bilirubin 0.7 AST 29 ALT 23 Alkaline Phosphatase 84 Total Creatine Kinase Troponin I < 0.012 C-Reactive Protein NT-Pro-B Natriuret Pep 2870 H Total Protein 7.7 Albumin 3.8 Vitamin B12 Folate TSH (Reflex) 1.140 Urine Color Dark yellow Urine Appearance Turbid H Urine pH 5.5 Ur Specific [place] 1.033 Urine Protein 3+ H Urine Glucose (UA) Negative Urine Ketones 1+ H Ur Blood (Man) 3+ H Urine Nitrate Negative Urine Bilirubin 1+ H Urine Urobilinogen 1.0 Leukocyte Esterase Rfl 3+ H Urine RBC 11-20 H Urine WBC >100 H Ur Squamous Epith Cells Moderate Urine Bacteria 1+ H Urine Casts >20 WBC Casts Present H Urine Eosinophils None seen Ur Random Creatinine U Random Total Protein Ur Random Sodium 14 Ur Random Urea Urine Total Volume Urine Creatinine > 693.0 Protein/Creatinin Ratio Protein/Creat Ratio 2 Urine Albumin U Roqjh-5-Lmknxmcd U Efmeu-5-Zwzxdmoc U Beta Globulin U Gamma Globulin U Abnormal Prot Band 1 U Abnormal Prot Band 2 U Abnormal Prot Band 3 Urine PEP Interpret POC Urine HCG, Qual Negative Urine Opiates Screen Negative Urine Methadone Screen Negative Ur Barbiturates Screen Negative Ur Phencyclidine Scrn Negative Ur Amphetamine Screen Negative U Benzodiazepines Scrn Negative Urine Cocaine Screen Negative U Cannabinoids Screen Negative Rheumatoid Factor Complement C3 Complement C4 Hep Bs Antigen Hep Bs Antibody Hep B Core IgM Ab Hepatitis C Ab Screen HIV 1&2 Ab/P24 Ag 4thGn Miscellaneous Test 06/21/25 06/21/25 06/22/25 22:53 22:57 06:01 WBC RBC Hgb Hct MCV MCH MCHC RDW Plt Count MPV Immature Gran % (Auto) Neut % (Auto) Lymph % (Auto) [facility] % (Auto) Eos % (Auto) Baso % (Auto) Lymph # (Auto) [facility] # (Auto) Eos # (Auto) Baso # (Auto) Abs Immat Gran (auto) Absolute Neuts (auto) Absolute Nucleated RBC Nucleated RBC % ESR 50 H PT INR APTT D-Dimer 1.34 H Sodium Potassium Chloride Carbon Dioxide Anion Gap BUN Creatinine Estim Creat Clear Calc Estimated GFR Glucose Serum Osmolality Calcium Phosphorus 5.0 H Magnesium Iron TIBC % Saturation Ferritin Total Bilirubin AST ALT Alkaline Phosphatase Total Creatine Kinase 142 H Troponin I < 0.012 C-Reactive Protein 5.9 H NT-Pro-B Natriuret Pep Total Protein Albumin Vitamin B12 Folate TSH (Reflex) Urine Color Urine Appearance Urine pH Ur Specific [place] Urine Protein Urine Glucose (UA) Urine Ketones Ur Blood (Man) Urine Nitrate Urine Bilirubin Urine Urobilinogen Leukocyte Esterase Rfl Urine RBC Urine WBC Ur Squamous Epith Cells Urine Bacteria Urine Casts WBC Casts Urine Eosinophils Ur Random Creatinine U Random Total Protein Ur Random Sodium Ur Random Urea Urine Total Volume Urine Creatinine Protein/Creatinin Ratio Protein/Creat Ratio 2 Urine Albumin U Pibdv-1-Mlbdlruf U Ynuzl-0-Avfwjndg U Beta Globulin U Gamma Globulin U Abnormal Prot Band 1 U Abnormal Prot Band 2 U Abnormal Prot Band 3 Urine PEP Interpret POC Urine HCG, Qual Urine Opiates Screen Urine Methadone Screen Ur Barbiturates Screen Ur Phencyclidine Scrn Ur Amphetamine Screen U Benzodiazepines Scrn Urine Cocaine Screen U Cannabinoids Screen Rheumatoid Factor Complement C3 Complement C4 Hep Bs Antigen Hep Bs Antibody Hep B Core IgM Ab Hepatitis C Ab Screen HIV 1&2 Ab/P24 Ag 4thGn Miscellaneous Test Cancelled 06/22/25 06/22/25 06/22/25 06:08 06:10 06:16 WBC 12.3 H RBC 3.47 L Hgb 9.1 L Hct 29.3 L MCV 84.4 MCH 26.2 MCHC 31.1 L RDW 15.3 H Plt Count 279 MPV 10.9 H Immature Gran % (Auto) Neut % (Auto) Lymph % (Auto) [facility] % (Auto) Eos % (Auto) Baso % (Auto) Lymph # (Auto) [facility] # (Auto) Eos # (Auto) Baso # (Auto) Abs Immat Gran (auto) Absolute Neuts (auto) Absolute Nucleated RBC Nucleated RBC % ESR PT INR APTT D-Dimer Sodium 134 L Potassium 4.3 Chloride 108 H Carbon Dioxide 18 L Anion Gap 8 BUN 30 H Creatinine 1.65 H Estim Creat Clear Calc 49 Estimated GFR 39 L Glucose 89 Serum Osmolality Cancelled Calcium 8.0 L Phosphorus 5.5 H Magnesium Iron 19 L TIBC 330 % Saturation 6 L Ferritin 35.50 Total Bilirubin AST ALT Alkaline Phosphatase Total Creatine Kinase Troponin I C-Reactive Protein NT-Pro-B Natriuret Pep Total Protein Albumin 3.1 L Vitamin B12 413.0 Folate 5.3 TSH (Reflex) Urine Color Urine Appearance Urine pH Ur Specific [place] Urine Protein Urine Glucose (UA) Urine Ketones Ur Blood (Man) Urine Nitrate Urine Bilirubin Urine Urobilinogen Leukocyte Esterase Rfl Urine RBC Urine WBC Ur Squamous Epith Cells Urine Bacteria Urine Casts WBC Casts Urine Eosinophils Ur Random Creatinine U Random Total Protein Ur Random Sodium Ur Random Urea Urine Total Volume Urine Creatinine Protein/Creatinin Ratio Protein/Creat Ratio 2 Urine Albumin U Vxpoy-6-Tfdwgxgn U Qabmj-0-Fctubkqw U Beta Globulin U Gamma Globulin U Abnormal Prot Band 1 U Abnormal Prot Band 2 U Abnormal Prot Band 3 Urine PEP Interpret POC Urine HCG, Qual Urine Opiates Screen Urine Methadone Screen Ur Barbiturates Screen Ur Phencyclidine Scrn Ur Amphetamine Screen U Benzodiazepines Scrn Urine Cocaine Screen U Cannabinoids Screen Rheumatoid Factor < 12.0 Complement C3 < 40 L Complement C4 26.7 Hep Bs Antigen Negative Hep Bs Antibody Negative Hep B Core IgM Ab Negative Hepatitis C Ab Screen Negative HIV 1&2 Ab/P24 Ag 4thGn Miscellaneous Test 06/22/25 06/22/25 06/22/25 09:55 09:55 09:59 WBC RBC Hgb Hct MCV MCH MCHC RDW Plt Count MPV Immature Gran % (Auto) Neut % (Auto) Lymph % (Auto) [facility] % (Auto) Eos % (Auto) Baso % (Auto) Lymph # (Auto) [facility] # (Auto) Eos # (Auto) Baso # (Auto) Abs Immat Gran (auto) Absolute Neuts (auto) Absolute Nucleated RBC Nucleated RBC % ESR PT INR APTT D-Dimer Sodium Potassium Chloride Carbon Dioxide Anion Gap BUN Creatinine Estim Creat Clear Calc Estimated GFR Glucose Serum Osmolality Calcium Phosphorus Magnesium Iron TIBC % Saturation Ferritin Total Bilirubin AST ALT Alkaline Phosphatase Total Creatine Kinase Troponin I C-Reactive Protein NT-Pro-B Natriuret Pep Total Protein Albumin Vitamin B12 Folate TSH (Reflex) Urine Color Urine Appearance Urine pH Ur Specific [place] Urine Protein Urine Glucose (UA) Urine Ketones Ur Blood (Man) Urine Nitrate Urine Bilirubin Urine Urobilinogen Leukocyte Esterase Rfl Urine RBC Urine WBC Ur Squamous Epith Cells Urine Bacteria Urine Casts WBC Casts Urine Eosinophils Ur Random Creatinine Cancelled U Random Total Protein 53 Cancelled Cancelled Ur Random Sodium Ur Random Urea 771 Urine Total Volume Cancelled Urine Creatinine 252.4 Protein/Creatinin Ratio Cancelled Protein/Creat Ratio 2 0.21 H Urine Albumin Cancelled U Zsdxc-3-[place]og Cancelled U Cvbah-2-Mokevvrl Cancelled U Beta Globulin Cancelled U Gamma Globulin Cancelled U Abnormal Prot Band 1 Cancelled U Abnormal Prot Band 2 Cancelled U Abnormal Prot Band 3 Cancelled Urine PEP Interpret Cancelled POC Urine HCG, Qual Urine Opiates Screen Urine Methadone Screen Ur Barbiturates Screen Ur Phencyclidine Scrn Ur Amphetamine Screen U Benzodiazepines Scrn Urine Cocaine Screen U Cannabinoids Screen Rheumatoid Factor Complement C3 Complement C4 Hep Bs Antigen Hep Bs Antibody Hep B Core IgM Ab Hepatitis C Ab Screen HIV 1&2 Ab/P24 Ag 4thGn Miscellaneous Test 06/22/25 22:53 WBC RBC Hgb Hct MCV MCH MCHC RDW Plt Count MPV Immature Gran % (Auto) Neut % (Auto) Lymph % (Auto) [facility] % (Auto) Eos % (Auto) Baso % (Auto) Lymph # (Auto) [facility] # (Auto) Eos # (Auto) Baso # (Auto) Abs Immat Gran (auto) Absolute Neuts (auto) Absolute Nucleated RBC Nucleated RBC % ESR PT INR APTT D-Dimer Sodium Potassium Chloride Carbon Dioxide Anion Gap BUN Creatinine Estim Creat Clear Calc Estimated GFR Glucose Serum Osmolality Calcium Phosphorus Magnesium Iron TIBC % Saturation Ferritin Total Bilirubin AST ALT Alkaline Phosphatase Total Creatine Kinase Troponin I C-Reactive Protein NT-Pro-B Natriuret Pep Total Protein Albumin Vitamin B12 Folate TSH (Reflex) Urine Color Urine Appearance Urine pH Ur Specific [place] Urine Protein Urine Glucose (UA) Urine Ketones Ur Blood (Man) Urine Nitrate Urine Bilirubin Urine Urobilinogen Leukocyte Esterase Rfl Urine RBC Urine WBC Ur Squamous Epith Cells Urine Bacteria Urine Casts WBC Casts Urine Eosinophils Ur Random Creatinine U Random Total Protein Ur Random Sodium Ur Random Urea Urine Total Volume Urine Creatinine Protein/Creatinin Ratio Protein/Creat Ratio 2 Urine Albumin U Eqjno-5-Iniohvrh U Mftck-5-Fpgtoyhr U Beta Globulin U Gamma Globulin U Abnormal Prot Band 1 U Abnormal Prot Band 2 U Abnormal Prot Band 3 Urine PEP Interpret POC Urine HCG, Qual Urine Opiates Screen Urine Methadone Screen Ur Barbiturates Screen Ur Phencyclidine Scrn Ur Amphetamine Screen U Benzodiazepines Scrn Urine Cocaine Screen U Cannabinoids Screen Rheumatoid Factor Complement C3 Complement C4 Hep Bs Antigen Hep Bs Antibody Hep B Core IgM Ab Hepatitis C Ab Screen HIV 1&2 Ab/P24 Ag 4thGn Negative Miscellaneous Test
[2025-06-23] VITALS (10 sets, daily range): BP systolic 147–157; BP diastolic 88–90; PULSE 72–81; RESP 16; TEMP 36.7–37.1; O2SAT 94–97
--- NOTE | 2025-06-23 06:00 | ECHO_ITS ---
Patient Info Name: Deena Rogers Age: 25 years : 2000 Gender: Female Ht: 61 in Wt: 197 lbs BSA: 2.01 m2 HR: 72 bpm BP: 137 / 79 mmHg Technical Quality: Good Exam Date: 06/23/2025 12:06 PM Patient Status: I Admit Date: 06/23/2025 Exam Type: CA echo doppler color flow Complete two-dimensional, color flow and Doppler transthoracic echocardiogram is performed. Staff Referring Physician: Millicent Faye DO Circulation Sales Representative: Osvaldo Martinez III Attending Provider: Alireza Lopez MD Summary 1. Complete two-dimensional, color flow and Doppler transthoracic echocardiogram is performed. 2. Left ventricular systolic function is normal, estimated at 65-70. 3. The left ventricular diastolic function is normal. 4. There is mild pulmonic regurgitation. 5. There is trivial pericardial effusion. Left Ventricle Left ventricular chamber dimension is normal. Left ventricular systolic function is normal, estimated at 65-70. There is no increased left ventricular wall thickness. Left ventricular septal wall motion is normal. The left ventricular diastolic function is normal. Right Ventricle Right ventricular chamber dimension is normal. Right ventricular systolic function is normal. Left Atria Left atrial chamber dimension is normal. Right Atria Right atrial chamber dimension is normal. Aortic Valve The aortic valve is trileaflet. There is no aortic valve sclerosis. There is no aortic valve stenosis. There is no aortic valve regurgitation. Pulmonic Valve The pulmonic valve is normal. There is no pulmonic valve stenosis. There is mild pulmonic regurgitation. Mitral Valve The mitral valve has normal leaflets. There is no mitral valve stenosis. There is no mitral valve regurgitation. Tricuspid Valve The tricuspid valve leaflets are normal. There is no significant tricuspid valve stenosis. There is no tricuspid valve regurgitation. Pericardium/Pleural The pericardium appears normal. There is trivial pericardial effusion. Inferior Vena Cava Normal inferior vena cava with >50% collapse upon inspiration consistent with normal right atrial pressure, 5 mmHg. Aorta The aortic root size at the sinus of Valsalva is normal. The prox ascending aorta size is normal. Left Ventricular Outflow Tract Name Value Normal LVOT 2D LVOT Diameter 2.0 cm LVOT Doppler LVOT Peak Velocity 177 cm/s LVOT Peak Gradient 12 mmHg LVOT Mean Gradient 5 mmHg LVOT VTI 32 cm LVOT VTI/AV VTI Ratio 0.8 LVOT Stroke Volume 106 ml LVOT CO 7.4 l/min LVOT CI 3.7 l/min/m2 Pulmonic Valve Name Value Normal PV Doppler PV Peak Velocity 111 cm/s PV Peak Gradient 5 mmHg PV Mean Gradient 3 mmHg PV Regurgitation Doppler MD Peak End Diastolic Velocity 112 cm/s Mitral Valve Name Value Normal MV Doppler MV Peak Gradient 6 mmHg MV Mean Gradient 2 mmHg MV Area (Cont Eq VTI) 3.6 cm2 MV Diastolic Function MV E Peak Velocity 141 cm/s MV A Peak Velocity 107 cm/s MV E/A 1.3 MV Decel Time (PW) 185 ms MV Annular TDI MV E/e' (Septal) 11.6 MV E/e' (Lateral) 10.2 MV E/e' (Average) 10.9 Tricuspid Valve Name Value Normal Estimated PAP/RSVP RA Pressure 5 mmHg <=5 TV Annular TDI TV Lateral Dary s' Velocity 16.8 cm/s >=9.5 Aortic Valve Name Value Normal AV Doppler AV Peak Velocity 206 cm/s AV Peak Gradient 17 mmHg AV Mean Gradient 8 mmHg AV VTI 39 cm AV Area (Cont Eq VTI) 2.7 cm2 >=3.0 AV Area (Cont Eq Savage) 2.8 cm2 AV DI (Savage) 0.86 AV Regurgitation 2D LVOT Area 3.3 cm2 Ventricles Name Value Normal LV Dimensions 2D/MM IVS Diastolic Thickness (2D) 1.0 cm 0.6-1.0 LVID Diastole (2D) 4.4 cm 3.8-5.2 LVIW Diastolic Thickness (2D) 0.9 cm 0.6-0.9 LVID Systole (2D) 2.6 cm 2.2-3.5 LVOT Diameter 2.0 cm LV Mass (2D Cubed) 131.92 g 67.00-162.00 LV Mass Index (2D Cubed) 66 g/m2 43-95 Relative Wall Thickness (2D) 0.39 <=0.42 LV Fractional Shortening/Ejection Fraction 2D/MM LV Fractional Shortening (2D) 41 % 27-45 LV EF (2D Teichholz) 72 % LV Diastolic Volume (4C MOD) 102 ml LV EF (4C MOD) 72 % LV Diastolic Volume (2C MOD) 87 ml LV EF (2C MOD) 72 % LV Diastolic Volume (BP MOD) 97 ml 46-106 LV Diastolic Volume Index (BP MOD) 49 ml/m2 29-61 LV Systolic Volume (BP MOD) 27 ml 14-42 LV Systolic Volume Index (BP MOD) 13 ml/m2 8-24 LV EF (BP MOD) 72 % 54-74 LV Diastolic Length (4C) 7.9 cm LV Systolic Length (4C) 5.7 cm LV Stroke Volume (4C MOD) 73 ml Atria Name Value Normal LA Dimensions LA Volume (4C A-L) 54 ml LA Volume (BP A-L) 59 ml RA Dimensions RA Systolic Major Hancock Length (4C) 5.1 cm 2.2-2.8 RA Area (4C) 17.2 cm2 <=18.0 Report Signatures
[2025-06-23 06:06] LABS: Hematocrit 31.1 % (37.0-47.0); Hemoglobin 9.8 g/dL (12.0-15.0); Immature Granulocyte Percent A 0.5 % (0-0.5); Lymphocytes Absolute Auto 2.92 K/mm3 (0.9-3.2); Mean Corpuscular HGB Conc 31.5 g/dl (32-36); Mean Corpuscular Hemoglobin 26.1 pg (26-34); Mean Corpuscular Volume 82.9 fl (80-100); Nucleated Red Blood Cells Absolute Auto 0.000 K/mm3 (0.0-0.012); Nucleated Red Blood Cells Perc 0.0 % (0.0-0.2); Platelet Count Result 311 k/mm3 (150-375); Red Blood Count 3.75 M/mm3 (4.2-5.4); White Blood Count 13.0 K/mm3 (4.5-10.0)
[2025-06-23 06:30] LABS: Alanine Aminotransferase 20 U/L (6-35); Albumin Level 3.4 g/dL (3.5-5.1); Alkaline Phosphatase 83 U/L (38-126); Anion Gap 8 mmol/L (4-12); Aspartate Amino Transferase 38 U/L (14-36); Bilirubin,Total 0.6 mg/dL (0.2-1.3); Blood Urea Nitrogen 30 mg/dL (7-17); Calcium 8.2 mg/dL (8.4-10.2); Carbon Dioxide 19 mmol/L (22-30); Chloride 108 mmol/L (98-107); Creatine Kinase 101 U/L (30-135); Estimated CRCL calculation 59 ml/min; Estimated Glomerular Filt Rate 49; Glucose 84 mg/dL (65-110); Magnesium 2.3 mg/dL (1.6-2.3); Potassium 4.1 mmol/L (3.4-5.0); Sodium 135 mmol/L (137-145); Total Protein 7.0 g/dL (6.3-8.2)
[2025-06-23] MEDS: FUROSEMIDE INJ 40 MG/4 ML VIAL IV PUSH ×2 (08:51→21:05)
[2025-06-23] MEDS: FERROUS SULFATE 325 MG TABLET PO ×2 (08:51→16:22)
[2025-06-23] MEDS: ENOXAPARIN 40 MG/0.4 ML SYRINGE SUB-Q (08:51)
[2025-06-23 11:08] LABS: Anticardiolipin Ab,IgG,Qn <9 GPL U/mL (0-14); Anticardiolipin Ab,IgM,Qn 10 MPL U/mL (0-12)
--- NOTE | 2025-06-23 14:25 | PM.IMPN ---
Progress Note: A&P Assessment and Plan (1) Volume overload: Code(s): E87.70 - Fluid overload, unspecified Status: Acute Assessment and Plan: The patient presents with SOB and fluid overload. CXR showing bilateral PNA CTA Ch/Abd/pelvis showing diffuse lung disease c/w pulm edema and possible PNA with small pleural effusions, No PE. EKG showing short SD interval but otherwise normal Troponin negative x2. BNP 2870. TCK 142. No recent viral symptoms to suggest myocarditis or post-strep. Could be related to ERIC. Echo normal with EF 65-70% and normal diastolic fxn. Patient started on IV Lasix. UOP not being measured. Weights not acurate. Follow her clinically. (2) Acute kidney injury: Code(s): N17.9 - Acute kidney failure, unspecified Status: Acute Assessment and Plan: Cr elevated at 1.76 with BUN 29. Metabolic nongap acidosis noted felt related to under secretion of acids and ketones UA showing 3+ protein, 1+ ketones, 3+ blood (11=20 RBCs), 3+ LE, >100 WBC. UPreg negative. UPr/Cr 0.21gm. FEurea 17%. HIV negative. Hepatitis panel negative. Total Comp <18, C3 <40 and C4 27. RF <12. UDS negative. PT/PTT normal. ESR 50. DDimer positive at 1.34 --> CTA negative for PE; Doppler negative for DVT. 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 ANCA panel negative. ds-DNA, anti-cardiolipin Ab negative. Consider SLE, post-strep GN, IgA nephropathy, rapidly progressive GN. Vasculitis induced GN. Renal US showing normal findings. BCx pending Nephrology consult. patietn will need renal biopsy. (3) Proteinuria: Qualifiers: Proteinuria type: unspecified Qualified Code(s): R80.9 - Proteinuria, unspecified Code(s): R80.9 - Proteinuria, unspecified Status: Acute Assessment and Plan: As above (4) Leukocytosis: Qualifiers: Leukocytosis type: unspecified Qualified Code(s): D72.829 - Elevated white blood cell count, unspecified Code(s): D72.829 - Elevated white blood cell count, unspecified Status: Acute Assessment and Plan: WBC elevated on admission. UA noted and would consider UTI bit she denies symptoms. WBC elevated but stable. BCx pending UCx pending Hold off on abx (5) Elevated blood pressure reading: Code(s): R03.0 - Elevated blood-pressure reading, without diagnosis of hypertension Status: Acute Assessment and Plan: BP noted on admission felt related to fluid overload Lasix started with good UOP BP better and will follow for now (6) Anemia: Code(s): D64.9 - Anemia, unspecified Status: Acute Assessment and Plan: Patient with Hgb 10 on admission. Not clear if she has a baseline anemia and/or related to above. B12/Folate normal. Iron low at 19, normal TIBC and ISat 6%. Ferritin low end of normal at 35 consisent with iron deficiency anemia. Iron added. Follow HH for now Transfuse to stable Hgb Plan DVT Prophylaxis - lovenox Code status - full Subjective Date/time seen: 06/23/25 14:25 Interval history: 25 year female with no known past medical history of obesity who presented to the ER with 3 days of shortness of breath and lower extremity swelling. She slept poorly last night has a shortness of breath. She still short of breath if she lies flat. She also short of breath with conversation. Dyspnea on exertion is better. Exam Narrative: AF 98.0 151/90 81 16 97% ra Gen - NARD Chest - decreased BS in the bases. CV - RRR S1/S2 Abd - Soft, NT/ND, Positive BS Ext - No pedal edema Neuro - Alert and oriented. Nonfocal exam. Psych - Nml mood and affect Skin - Warm and dry Objective Data Vital Signs Vital Signs: Vital Signs - 24 hr 06/22/25 16:00 06/22/25 20:00 06/22/25 22:00 Temperature 99.7 F H Pulse Rate 73 72 79 Respiratory Rate 16 Blood Pressure 137/79 Pulse Oximetry 94 Oxygen Delivery 06/23/25 00:00 06/23/25 03:43 06/23/25 06:00 Temperature 98.6 F Pulse Rate 78 72 76 Respiratory Rate 16 Blood Pressure 157/88 H Pulse Oximetry 94 Oxygen Delivery 06/23/25 08:01 06/23/25 09:01 06/23/25 12:05 Temperature Pulse Rate 74 74 Respiratory Rate 16 Blood Pressure Pulse Oximetry 94 Oxygen Delivery Room Air 06/23/25 14:00 Temperature 98.0 F Pulse Rate 81 Respiratory Rate 16 Blood Pressure 151/90 H Pulse Oximetry 97 Oxygen Delivery Intake/Output Intake/Output: Intake & Output 06/20/25 06/21/25 06/22/25 06/23/25 23:59 23:59 23:59 23:59 Intake Total 1999 870 Balance 1999 870 Meds/Results Medications: Active Medications Generic Name Dose Route Start Last Admin Trade Name Freq PRN Reason Stop Dose Admin Acetaminophen 650 mg 06/21/25 23:24 06/22/25 08:47 Acetaminophen 325 Mg Tablet PO 650 mg Q4H PRN Administration Mild Pain (1-3) or Fever Calcium Carbonate 200 mg 06/21/25 23:24 Calcium Carbonate (Tums) 500 Mg (200 Mg Elemental) PO Q6H PRN Indigestion Enoxaparin Sodium 40 mg 06/22/25 09:00 06/23/25 08:51 Enoxaparin 40 Mg/0.4 Ml Syringe SUB-Q 40 mg DAILY SHANTELL Administration Ferrous Sulfate 325 mg 06/23/25 09:00 06/23/25 08:51 Ferrous Sulfate 325 Mg Tablet PO 325 mg BID SHANTELL Administration Furosemide 40 mg 06/22/25 09:00 06/23/25 08:51 Furosemide Inj 40 Mg/4 Ml Vial IV PUSH 40 mg Q12HR SHANETLL Administration Morphine Sulfate 2 mg 06/21/25 22:46 06/21/25 23:27 Morphine Sulfate (*Crx) 4 Mg/Ml Inj IV PUSH 2 mg Q4H PRN Administration Pain Rated 7-10 Perflutren Lipid Microsphere 0 ml 06/21/25 17:58 Perflutren Lipid Microspheres 1.5 Ml Vial Diluted To 10 Ml Total Volume IV PUSH 06/24/25 18:01 ONCE PRN adequate visualization Protocol Radiology Results: ITS Impressions Chest X-Ray 06/21/25 16:29 Impression: Bilateral pneumonia Chest/Abdomen/Pelvis CTA 06/22/25 08:22 IMPRESSION: 1. Diffuse lung disease, consistent with moderate pulmonary edema without or with superimposed pneumonia. 2. Small pleural effusions. 3. No pulmonary embolus. Venous Doppler Study 06/22/25 09:38 IMPRESSION: 1. No deep venous thrombosis. Renal Ultrasound 06/22/25 09:39 IMPRESSION: 1. No hydronephrosis. Labs Labs: Laboratory Results - last 24 hr 06/22/25 06/22/2525 06:01 06:07 06:09 WBC RBC Hgb Hct MCV MCH MCHC RDW Plt Count MPV Immature Gran % (Auto) Neut % (Auto) Lymph % (Auto) [place] % (Auto) Eos % (Auto) Baso % (Auto) Lymph # (Auto) [place] # (Auto) Eos # (Auto) Baso # (Auto) Abs Immat Gran (auto) Absolute Neuts (auto) Absolute Nucleated RBC Nucleated RBC % Sodium Potassium Chloride Carbon Dioxide Anion Gap BUN Creatinine Estim Creat Clear Calc Estimated GFR Glucose Calcium Phosphorus Magnesium Total Bilirubin AST ALT Alkaline Phosphatase Total Creatine Kinase Total Protein Albumin Cryoglobulin % Cryoglobulin Qualit c-ANCA Antibody <1:20 Atypical p-ANCA <1:20 p-ANCA Antibody <1:20 Sm (Kessler) Antibody Cancelled SM/APPLICATIONS PROGRAMMER ANALYST IgG Antibody Cancelled Double Strand DNA Ab Glomerular Base Memb Ab Anti-Cardiolipin IgG Ab Anti-Cardiolipin IgM Ab Tot Complement (CH50) <18 L Miscellaneous Test Comment 06/22/25 06/22/25 06/23/25 06:16 09:03 05:42 WBC 13.0 H RBC 3.75 L Hgb 9.8 L Hct 31.1 L MCV 82.9 MCH 26.1 MCHC 31.5 L RDW 15.1 H Plt Count 311 MPV 11.3 H Immature Gran % (Auto) 0.5 Neut % (Auto) 64.2 Lymph % (Auto) 22.4 [place] % (Auto) 10.0 H Eos % (Auto) 2.5 Baso % (Auto) 0.4 Lymph # (Auto) 2.92 [place] # (Auto) 1.3 H Eos # (Auto) 0.3 Baso # (Auto) 0.1 Abs Immat Gran (auto) 0.06 H Absolute Neuts (auto) 8.4 H Absolute Nucleated RBC 0.000 Nucleated RBC % 0.0 Sodium 135 L Potassium 4.1 Chloride 108 H Carbon Dioxide 19 L Anion Gap 8 BUN 30 H Creatinine 1.35 H Estim Creat Clear Calc 59 Estimated GFR 49 L Glucose 84 Calcium 8.2 L Phosphorus 5.4 H Magnesium 2.3 Total Bilirubin 0.6 AST 38 H ALT 20 Alkaline Phosphatase 83 Total Creatine Kinase 101 Total Protein 7.0 Albumin 3.4 L Cryoglobulin % Cancelled Cryoglobulin Qualit Cancelled c-ANCA Antibody Atypical p-ANCA p-ANCA Antibody Sm (Kessler) Antibody SM/APPLICATIONS PROGRAMMER ANALYST IgG Antibody Double Strand DNA Ab <1 Glomerular Base Memb Ab Cancelled Anti-Cardiolipin IgG Ab <9 Anti-Cardiolipin IgM Ab 10 Tot Complement (CH50) Miscellaneous Test
--- NOTE | 2025-06-23 15:01 | P.PNNP_ITS ---
Progress Note: A&P Assessment and Plan (1) Acute kidney injury: Code(s): N17.9 - Acute kidney failure, unspecified Status: Acute Assessment and Plan: * presumably normal baseline renal function * etiology not clear: * new CHF * inflammatory disorder (autoimmune disease/vasculitis/glomerulonephritis?) * other(?) * evaluation to date noted: * renal ultrasound normal * urine electrolytes prerenal * urine eosinophils negative * serologies as noted * UA with blood and protein along with possible infection * only 210mg of proteinuria * elevated ESR and CRP * serologies testing to date: * HIV negative * hepatitis panel negative * C4 normal, C3 and CH50 low * ANCA negative * DAWN pending but dsDNA-Ab negative * 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 * follow trend of repeat labs and UOP (2) Volume overload: Code(s): E87.70 - Fluid overload, unspecified Status: Acute Assessment and Plan: * etiology(?): * due to CHF * from kidney failure * other(?) * CHF suggested by admission imaging/testing/exam: * CXR/CT with pleural effusions and pulmonary edema * elevated BNP * LE edema present * SOB with orthopnea + PND * however, Echo results noted: * left ventricular systolic function is normal, estimated at 65 - 70% * left ventricular diastolic function is normal * no aortic valve stenosis or regurgitation * no mitral valve stenosis or regurgitation * no tricuspidvalve stenosis or regurgitation. * mild pulmonic regurgitation * trivial pericardial effusion * on IV diuretics * follow I/Os, daily weights, and clinical exam (3) Pleural effusion: Code(s): J90 - Pleural effusion, not elsewhere classified Status: Acute Assessment and Plan: * as noted on admission imaging * follow serial CXRs and respiratory status (4) Anemia: Code(s): D64.9 - Anemia, unspecified Status: Acute Assessment and Plan: * due to renal dysfunction versus acute ilness... * anemia studies consistent with iron deficiency * started on oral iron * follow trend of H/H (5) Urinary tract infection: Code(s): N39.0 - Urinary tract infection, site not specified Status: Acute Assessment and Plan: * admission UA suggestive * however, no clinical symptoms * follow culture data * holding off on antibiotic therapy (6) Elevated blood pressure reading: Code(s): R03.0 - Elevated blood-pressure reading, without diagnosis of hypertension Status: Acute Assessment and Plan: * as noted on admission * may improve with diuresis * follow trend of hemodynamics (7) Leukocytosis: Qualifiers: Leukocytosis type: unspecified Qualified Code(s): D72.829 - Elevated white blood cell count, unspecified Code(s): D72.829 - Elevated white blood cell count, unspecified Status: Acute Assessment and Plan: * due to possible underlying infection inflammatory response? * follow culture data * r/o infection * holding antibiotics at this time Will continue to follow. L Subjective Date/time seen: 06/23/25 15:01 Interval history: Follow-up for acute kidney injury/acute renal failure. Still reports shortness of breath with at rest and when laying flat causing difficulty sleeping last night; however, shortness of breath with exertion has improved; swelling/edema in LEs seems better at this time; renal function/creatinine remains the same; otherwise, no apparent distress noted. Exam 2 Narrative: General: WD/WN female in NAD Heart: normal S1 and S2; no rub Lungs: decreased at bases Abdomen: soft, nontender, nondistended, positive bowel sounds Extremities: no cyanosis or clubbing; trace edema Skin: warm and dry Objective Data Vital Signs Vital Signs: Vital Signs Temp Pulse Resp BP Pulse Ox O2 Del Method 06/23/25 09:01 16 94 Room Air 06/23/25 08:01 74 06/23/25 06:00 98.6 F 76 16 157/88 H 94 06/23/25 03:43 72 06/23/25 00:00 78 06/22/25 22:00 99.7 F H 79 16 137/79 94 06/22/25 20:00 72 Intake/Output Intake/Output: Intake & Output 06/20/25 06/21/25 06/22/25 06/23/25 23:59 23:59 23:59 23:59 Intake Total 1999 1420 Balance 1999 1420 Meds/Results Medications: Active Medications Generic Name Dose Route Start Last Admin Trade Name Freq PRN Reason Stop Dose Admin Acetaminophen 650 mg 06/21/25 23:24 09/28/25 08:47 Acetaminophen 325 Mg Tablet PO 650 mg Q4H PRN Administration Mild Pain (1-3) or Fever Calcium Carbonate 200 mg 06/21/25 23:24 Calcium Carbonate (Tums) 500 Mg (200 Mg Elemental) PO Q6H PRN Indigestion Enoxaparin Sodium 40 mg 06/22/25 09:00 06/23/25 08:51 Enoxaparin 40 Mg/0.4 Ml Syringe SUB-Q 40 mg DAILY SHANTELL Administration Ferrous Sulfate 325 mg 06/23/25 09:00 06/23/25 16:22 Ferrous Sulfate 325 Mg Tablet PO 325 mg BID SHANTELL Administration Furosemide 40 mg 06/22/25 09:00 06/23/25 08:51 Furosemide Inj 40 Mg/4 Ml Vial IV PUSH 40 mg Q12HR SHANTELL Administration Morphine Sulfate 2 mg 06/21/25 22:46 06/21/25 23:27 Morphine Sulfate (*Crx) 4 Mg/Ml Inj IV PUSH 2 mg Q4H PRN Administration Pain Rated 7-10 Perflutren Lipid Microsphere 0 ml 06/21/25 17:58 Perflutren Lipid Microspheres 1.5 Ml Vial Diluted To 10 Ml Total Volume IV PUSH 06/24/25 18:01 ONCE PRN adequate visualization Protocol Radiology Results: ITS Impressions Chest X-Ray 06/21/25 16:29 Impression: Bilateral pneumonia Chest/Abdomen/Pelvis CTA 06/22/25 08:22 IMPRESSION: 1. Diffuse lung disease, consistent with moderate pulmonary edema without or with superimposed pneumonia. 2. Small pleural effusions. 3. No pulmonary embolus. Venous Doppler Study 06/22/25 09:38 IMPRESSION: 1. No deep venous thrombosis. Renal Ultrasound 06/22/25 09:39 IMPRESSION: 1. No hydronephrosis. Labs Labs: Laboratory Tests 06/23/25 05:42 06/23/25 05:42 Calcium 8.2 L Phosphorus 5.4 H Magnesium 2.3 Total Bilirubin 0.6 AST 38 H ALT 20 Alkaline Phosphatase 83 Total Creatine Kinase 101 Total Protein 7.0 Albumin 3.4 L
--- NOTE | 2025-06-23 15:01 | PM.PNNEP ---
Progress Note: A&P Assessment and Plan (1) Acute kidney injury: Code(s): N17.9 - Acute kidney failure, unspecified Status: Acute Assessment and Plan: presumably normal baseline renal function etiology not clear: new CHF inflammatory disorder (autoimmune disease/vasculitis/glomerulonephritis?) other(?) evaluation to date noted: renal ultrasound normal urine electrolytes prerenal urine eosinophils negative serologies as noted UA with blood and protein along with possible infection only 210mg of proteinuria elevated ESR and CRP serologies testing to date: HIV negative hepatitis panel negative C4 normal, C3 and CH50 low ANCA negative DAWN pending but dsDNA-Ab negative 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 follow trend of repeat labs and UOP (2) Volume overload: Code(s): E87.70 - Fluid overload, unspecified Status: Acute Assessment and Plan: etiology(?): due to CHF from kidney failure other(?) CHF suggested by admission imaging/testing/exam: CXR/CT with pleural effusions and pulmonary edema elevated BNP LE edema present SOB with orthopnea + PND however, Echo results noted: left ventricular systolic function is normal, estimated at 65 - 70% left ventricular diastolic function is normal no aortic valve stenosis or regurgitation no mitral valve stenosis or regurgitation no tricuspidvalve stenosis or regurgitation. mild pulmonic regurgitation trivial pericardial effusion on IV diuretics follow I/Os, daily weights, and clinical exam (3) Pleural effusion: Code(s): J90 - Pleural effusion, not elsewhere classified Status: Acute Assessment and Plan: as noted on admission imaging follow serial CXRs and respiratory status (4) Anemia: Code(s): D64.9 - Anemia, unspecified Status: Acute Assessment and Plan: due to renal dysfunction versus acute ilness... anemia studies consistent with iron deficiency started on oral iron follow trend of H/H (5) Urinary tract infection: Code(s): N39.0 - Urinary tract infection, site not specified Status: Acute Assessment and Plan: admission UA suggestive however, no clinical symptoms follow culture data holding off on antibiotic therapy (6) Elevated blood pressure reading: Code(s): R03.0 - Elevated blood-pressure reading, without diagnosis of hypertension Status: Acute Assessment and Plan: as noted on admission may improve with diuresis follow trend of hemodynamics (7) Leukocytosis: Qualifiers: Leukocytosis type: unspecified Qualified Code(s): D72.829 - Elevated white blood cell count, unspecified Code(s): D72.829 - Elevated white blood cell count, unspecified Status: Acute Assessment and Plan: due to possible underlying infection inflammatory response? follow culture data r/o infection holding antibiotics at this time Will continue to follow. Subjective Date/time seen: 06/23/25 15:01 Interval history: Follow-up for acute kidney injury/acute renal failure. Still reports shortness of breath with at rest and when laying flat causing difficulty sleeping last night; however, shortness of breath with exertion has improved; swelling/edema in LEs seems better at this time; renal function/creatinine remains the same; otherwise, no apparent distress noted. Exam Narrative: General: WD/WN female in NAD Heart: normal S1 and S2; no rub Lungs: decreased at bases Abdomen: soft, nontender, nondistended, positive bowel sounds Extremities: no cyanosis or clubbing; trace edema Skin: warm and dry Objective Data Vital Signs Vital Signs: Vital Signs Temp Pulse Resp BP Pulse Ox O2 Del Method 06/23/25 09:01 16 94 Room Air 06/23/25 08:01 74 06/23/25 06:00 98.6 F 76 16 157/88 H 94 06/23/25 03:43 72 06/23/25 00:00 78 06/22/25 22:00 99.7 F H 79 16 137/79 94 06/22/25 20:00 72 Intake/Output Intake/Output: Intake & Output 06/20/25 06/21/25 06/22/25 06/23/25 23:59 23:59 23:59 23:59 Intake Total 1999 1420 Balance 1999 1420 Meds/Results Medications: Active Medications Generic Name Dose Route Start Last Admin Trade Name Freq PRN Reason Stop Dose Admin Acetaminophen 650 mg 06/21/25 23:24 06/22/25 08:47 Acetaminophen 325 Mg Tablet PO 650 mg Q4H PRN Administration Mild Pain (1-3) or Fever Calcium Carbonate 200 mg 06/21/25 23:24 Calcium Carbonate (Tums) 500 Mg (200 Mg Elemental) PO Q6H PRN Indigestion Enoxaparin Sodium 40 mg 06/22/25 09:00 06/23/25 08:51 Enoxaparin 40 Mg/0.4 Ml Syringe SUB-Q 40 mg DAILY SHANTELL Administration Ferrous Sulfate 325 mg 06/23/25 09:00 06/23/25 16:22 Ferrous Sulfate 325 Mg Tablet PO 325 mg BID SHANTELL Administration Furosemide 40 mg 06/22/25 09:00 06/23/25 08:51 Furosemide Inj 40 Mg/4 Ml Vial IV PUSH 40 mg Q12HR SHANTELL Administration Morphine Sulfate 2 mg 06/21/25 22:46 06/21/25 23:27 Morphine Sulfate (*Crx) 4 Mg/Ml Inj IV PUSH 2 mg Q4H PRN Administration Pain Rated 7-10 Perflutren Lipid Microsphere 0 ml 06/21/25 17:58 Perflutren Lipid Microspheres 1.5 Ml Vial Diluted To 10 Ml Total Volume IV PUSH 06/24/25 18:01 ONCE PRN adequate visualization Protocol Radiology Results: ITS Impressions Chest X-Ray 06/21/25 16:29 Impression: Bilateral pneumonia Chest/Abdomen/Pelvis CTA 06/22/25 08:22 IMPRESSION: 1. Diffuse lung disease, consistent with moderate pulmonary edema without or with superimposed pneumonia. 2. Small pleural effusions. 3. No pulmonary embolus. Venous Doppler Study 06/22/25 09:38 IMPRESSION: 1. No deep venous thrombosis. Renal Ultrasound 06/22/25 09:39 IMPRESSION: 1. No hydronephrosis. Labs Labs: Laboratory Tests 06/23/25 05:42 06/23/25 05:42 Calcium 8.2 L Phosphorus 5.4 H Magnesium 2.3 Total Bilirubin 0.6 AST 38 H ALT 20 Alkaline Phosphatase 83 Total Creatine Kinase 101 Total Protein 7.0 Albumin 3.4 L
[2025-06-24] VITALS (10 sets, daily range): BP systolic 136–146; BP diastolic 85–91; PULSE 67–130; RESP 16–18; TEMP 36.3–36.8; O2SAT 93–94
[2025-06-24 06:03] LABS: Hematocrit 31.9 % (37.0-47.0); Hemoglobin 9.9 g/dL (12.0-15.0); Immature Granulocyte Percent A 0.5 % (0-0.5); Lymphocytes Absolute Auto 2.76 K/mm3 (0.9-3.2); Mean Corpuscular HGB Conc 31.0 g/dl (32-36); Mean Corpuscular Hemoglobin 25.8 pg (26-34); Mean Corpuscular Volume 83.3 fl (80-100); Nucleated Red Blood Cells Absolute Auto 0.000 K/mm3 (0.0-0.012); Nucleated Red Blood Cells Perc 0.0 % (0.0-0.2); Platelet Count Result 331 k/mm3 (150-375); Red Blood Count 3.83 M/mm3 (4.2-5.4); White Blood Count 10.4 K/mm3 (4.5-10.0)
[2025-06-24 06:37] LABS: Albumin Level 3.2 g/dL (3.5-5.1); Anion Gap 7 mmol/L (4-12); Blood Urea Nitrogen 23 mg/dL (7-17); Calcium 8.1 mg/dL (8.4-10.2); Carbon Dioxide 22 mmol/L (22-30); Chloride 108 mmol/L (98-107); Estimated CRCL calculation 64 ml/min; Estimated Glomerular Filt Rate 54; Glucose 94 mg/dL (65-110); Potassium 4.2 mmol/L (3.4-5.0); Sodium 137 mmol/L (137-145)
[2025-06-24] MEDS: FERROUS SULFATE 325 MG TABLET PO ×2 (08:15→17:37)
[2025-06-24] MEDS: FUROSEMIDE INJ 40 MG/4 ML VIAL IV PUSH ×2 (08:15→20:05)
[2025-06-24] MEDS: ENOXAPARIN 40 MG/0.4 ML SYRINGE SUB-Q (08:16)
--- NOTE | 2025-06-24 10:56 | PM.PNNEP ---
Progress Note: A&P Assessment and Plan (1) Acute kidney injury: Code(s): N17.9 - Acute kidney failure, unspecified Status: Acute Assessment and Plan: presumably normal baseline renal function etiology not clear: new CHF inflammatory disorder (autoimmune disease/vasculitis/glomerulonephritis?) other(?) evaluation to date noted: renal ultrasound normal urine electrolytes prerenal urine eosinophils negative serologies as noted UA with blood and protein along with possible infection only 210mg of proteinuria elevated ESR and CRP serologies testing to date: HIV negative hepatitis panel negative C4 normal, C3 and CH50 low ANCA negative DAWN pending but dsDNA-Ab negative Kessler/QUILTING SUPERVISOR Ab and anti-cardiolipin Ab negative antiGBM pending RF negative SPEP negative UPEP and serum/urine immunofixation pending Anti-Streptolysis O Ab elevated at 879 possible post strep GN..her low C3 level suggestive as well however, no clinical history of strep infection... continues supportive therapy follow trend of repeat labs and UOP (2) Volume overload: Code(s): E87.70 - Fluid overload, unspecified Status: Acute Assessment and Plan: etiology(?): due to CHF from kidney failure other(?) CHF suggested by admission imaging/testing/exam: CXR/CT with pleural effusions and pulmonary edema elevated BNP LE edema present SOB with orthopnea + PND however, Echo results noted: left ventricular systolic function is normal, estimated at 65 - 70% left ventricular diastolic function is normal no aortic valve stenosis or regurgitation no mitral valve stenosis or regurgitation no tricuspidvalve stenosis or regurgitation. mild pulmonic regurgitation trivial pericardial effusion on IV diuretics - continue for one more day follow I/Os, daily weights, and clinical exam (3) Pleural effusion: Code(s): J90 - Pleural effusion, not elsewhere classified Status: Acute Assessment and Plan: as noted on admission imaging follow serial CXRs and respiratory status (4) Anemia: Code(s): D64.9 - Anemia, unspecified Status: Acute Assessment and Plan: due to renal dysfunction versus acute ilness... anemia studies consistent with iron deficiency started on oral iron follow trend of H/H (5) Urinary tract infection: Code(s): N39.0 - Urinary tract infection, site not specified Status: Acute Assessment and Plan: admission UA suggestive however, no clinical symptoms follow culture data holding off on antibiotic therapy (6) Elevated blood pressure reading: Code(s): R03.0 - Elevated blood-pressure reading, without diagnosis of hypertension Status: Acute Assessment and Plan: as noted on admission may improve with diuresis follow trend of hemodynamics (7) Leukocytosis: Qualifiers: Leukocytosis type: unspecified Qualified Code(s): D72.829 - Elevated white blood cell count, unspecified Code(s): D72.829 - Elevated white blood cell count, unspecified Status: Acute Assessment and Plan: due to possible underlying infection inflammatory response? follow culture data r/o infection holding antibiotics at this time Case discussed with Dr. Lopez. Will continue to follow. Subjective Date/time seen: 06/24/25 10:56 Interval history: Follow-up for acute kidney injury/acute renal failure. Swelling and edema are doing with good urine output in response to IV diuretic therapy; renal function/creatinine doing a bit better as well; however, still has some shortness of breath with exertion but not as severe as on admission/presentation. Exam Narrative: General: WD/WN female in NAD Heart: normal S1 and S2; no rub Lungs: decreased at bases Abdomen: soft, nontender, nondistended, positive bowel sounds Extremities: no cyanosis or clubbing; trace edema Skin: warm and intact Objective Data Vital Signs Vital Signs: Vital Signs Temp Pulse Resp BP Pulse Ox O2 Del Method 06/24/25 08:00 75 06/24/25 08:00 Room Air 06/24/25 06:00 98.3 F 82 16 136/85 93 06/24/25 03:56 80 06/24/25 00:00 86 06/23/25 22:00 98.7 F 78 16 147/90 H 94 06/23/25 20:00 72 06/23/25 20:00 72 16 97 Room Air Intake/Output Intake/Output: Intake & Output 06/21/25 06/22/25 06/23/25 06/24/25 23:59 23:59 23:59 23:59 Intake Total 1999 1420 1460 Balance 1999 1420 1460 Meds/Results Medications: Active Medications Generic Name Dose Route Start Last Admin Trade Name Freq PRN Reason Stop Dose Admin Acetaminophen 650 mg 06/21/25 23:24 06/22/25 08:47 Acetaminophen 325 Mg Tablet PO 650 mg Q4H PRN Administration Mild Pain (1-3) or Fever Calcium Carbonate 200 mg 06/21/25 23:24 Calcium Carbonate (Tums) 500 Mg (200 Mg Elemental) PO Q6H PRN Indigestion Enoxaparin Sodium 40 mg 06/22/25 09:00 06/24/25 08:16 Enoxaparin 40 Mg/0.4 Ml Syringe SUB-Q 40 mg DAILY SHANTELL Administration Ferrous Sulfate 325 mg 06/23/25 09:00 06/24/25 08:15 Ferrous Sulfate 325 Mg Tablet PO 325 mg BID SHANTELL Administration Furosemide 40 mg 06/22/25 09:00 06/24/25 08:15 Furosemide Inj 40 Mg/4 Ml Vial IV PUSH 40 mg Q12HR SHANTELL Administration Morphine Sulfate 2 mg 06/21/25 22:46 06/21/25 23:27 Morphine Sulfate (*Crx) 4 Mg/Ml Inj IV PUSH 2 mg Q4H PRN Administration Pain Rated 7-10 Perflutren Lipid Microsphere 0 ml 06/21/25 17:58 Perflutren Lipid Microspheres 1.5 Ml Vial Diluted To 10 Ml Total Volume IV PUSH 06/24/25 18:01 ONCE PRN adequate visualization Protocol Radiology Results: ITS Impressions Chest X-Ray 06/21/25 16:29 Impression: Bilateral pneumonia Chest/Abdomen/Pelvis CTA 06/22/25 08:22 IMPRESSION: 1. Diffuse lung disease, consistent with moderate pulmonary edema without or with superimposed pneumonia. 2. Small pleural effusions. 3. No pulmonary embolus. Venous Doppler Study 06/22/25 09:38 IMPRESSION: 1. No deep venous thrombosis. Renal Ultrasound 06/22/25 09:39 IMPRESSION: 1. No hydronephrosis. Labs Labs: Laboratory Tests 06/24/25 05:04 06/24/25 05:03 Calcium 8.1 L Phosphorus 5.6 H Albumin 3.2 L Microbiology 06/22/25 19:59 Blood Blood Culture - Preliminary 06/22/25 19:59 Blood Blood Culture - Preliminary
--- NOTE | 2025-06-24 10:56 | P.PNNP_ITS ---
Progress Note: A&P Assessment and Plan (1) Acute kidney injury: Code(s): N17.9 - Acute kidney failure, unspecified Status: Acute Assessment and Plan: * presumably normal baseline renal function * etiology not clear: * new CHF * inflammatory disorder (autoimmune disease/vasculitis/glomerulonephritis?) * other(?) * evaluation to date noted: * renal ultrasound normal * urine electrolytes prerenal * urine eosinophils negative * serologies as noted * UA with blood and protein along with possible infection * only 210mg of proteinuria * elevated ESR and CRP * serologies testing to date: * HIV negative * hepatitis panel negative * C4 normal, C3 and CH50 low * ANCA negative * DAWN pending but dsDNA-Ab negative * Kessler/SUPERVISOR SOLDERING Ab and anti-cardiolipin Ab negative * antiGBM pending * RF negative * SPEP negative * UPEP and serum/urine immunofixation pending * Anti-Streptolysis O Ab elevated at 879 * possible post strep GN..her low C3 level suggestive as well * however, no clinical history of strep infection... * continues supportive therapy * follow trend of repeat labs and UOP (2) Volume overload: Code(s): E87.70 - Fluid overload, unspecified Status: Acute Assessment and Plan: * etiology(?): * due to CHF * from kidney failure * other(?) * CHF suggested by admission imaging/testing/exam: * CXR/CT with pleural effusions and pulmonary edema * elevated BNP * LE edema present * SOB with orthopnea + PND * however, Echo results noted: * left ventricular systolic function is normal, estimated at 65 - 70% * left ventricular diastolic function is normal * no aortic valve stenosis or regurgitation * no mitral valve stenosis or regurgitation * no tricuspidvalve stenosis or regurgitation. * mild pulmonic regurgitation * trivial pericardial effusion * on IV diuretics - continue for one more day * follow I/Os, daily weights, and clinical exam (3) Pleural effusion: Code(s): J90 - Pleural effusion, not elsewhere classified Status: Acute Assessment and Plan: * as noted on admission imaging * follow serial CXRs and respiratory status (4) Anemia: Code(s): D64.9 - Anemia, unspecified Status: Acute Assessment and Plan: * due to renal dysfunction versus acute ilness... * anemia studies consistent with iron deficiency * started on oral iron * follow trend of H/H (5) Urinary tract infection: Code(s): N39.0 - Urinary tract infection, site not specified Status: Acute Assessment and Plan: * admission UA suggestive * however, no clinical symptoms * follow culture data * holding off on antibiotic therapy (6) Elevated blood pressure reading: Code(s): R03.0 - Elevated blood-pressure reading, without diagnosis of hypertension Status: Acute Assessment and Plan: * as noted on admission * may improve with diuresis * follow trend of hemodynamics (7) Leukocytosis: Qualifiers: Leukocytosis type: unspecified Qualified Code(s): D72.829 - Elevated white blood cell count, unspecified Code(s): D72.829 - Elevated white blood cell count, unspecified Status: Acute Assessment and Plan: * due to possible underlying infection inflammatory response? * follow culture data * r/o infection * holding antibiotics at this time Case discussed with Dr. Lopez. Will continue to follow. L Subjective Date/time seen: 06/24/25 10:56 Interval history: Follow-up for acute kidney injury/acute renal failure. Swelling and edema are doing with good urine output in response to IV diuretic therapy; renal function/creatinine doing a bit better as well; however, still has some shortness of breath with exertion but not as severe as on admission/presentation. Exam 2 Narrative: General: WD/WN female in NAD Heart: normal S1 and S2; no rub Lungs: decreased at bases Abdomen: soft, nontender, nondistended, positive bowel sounds Extremities: no cyanosis or clubbing; trace edema Skin: warm and intact Objective Data Vital Signs Vital Signs: Vital Signs Temp Pulse Resp BP Pulse Ox O2 Del Method 06/24/25 08:00 75 06/24/25 08:00 Room Air 06/24/25 06:00 98.3 F 82 16 136/85 93 06/24/25 03:56 80 06/24/25 00:00 86 06/23/25 22:00 98.7 F 78 16 147/90 H 94 06/23/25 20:00 72 06/23/25 20:00 72 16 97 Room Air Intake/Output Intake/Output: Intake & Output 06/21/25 06/22/25 06/23/25 06/24/25 23:59 23:59 23:59 23:59 Intake Total 1999 1420 1460 Balance 1999 1420 1460 Meds/Results Medications: Active Medications Generic Name Dose Route Start Last Admin Trade Name Nhanq PRN Reason Stop Dose Admin Acetaminophen 650 mg 06/21/25 23:24 06/22/25 08:47 Acetaminophen 325 Mg Tablet PO 650 mg Q4H PRN Administration Mild Pain (1-3) or Fever Calcium Carbonate 200 mg 06/21/25 23:24 Calcium Carbonate (Tums) 500 Mg (200 Mg Elemental) PO Q6H PRN Indigestion Enoxaparin Sodium 40 mg 06/22/25 09:00 06/24/25 08:16 Enoxaparin 40 Mg/0.4 Ml Syringe SUB-Q 40 mg DAILY SHANTELL Administration Ferrous Sulfate 325 mg 06/23/25 09:00 06/24/25 08:15 Ferrous Sulfate 325 Mg Tablet PO 325 mg BID SHANTELL Administration Furosemide 40 mg 06/22/25 09:00 06/24/25 08:15 Furosemide Inj 40 Mg/4 Ml Vial IV PUSH 40 mg Q12HR SHANTELL Administration Morphine Sulfate 2 mg 06/21/25 22:46 06/21/25 23:27 Morphine Sulfate (*Crx) 4 Mg/Ml Inj IV PUSH 2 mg Q4H PRN Administration Pain Rated 7-10 Perflutren Lipid Microsphere 0 ml 06/21/25 17:58 Perflutren Lipid Microspheres 1.5 Ml Vial Diluted To 10 Ml Total Volume IV PUSH 06/24/25 18:01 ONCE PRN adequate visualization Protocol Radiology Results: ITS Impressions Chest X-Ray 06/21/25 16:29 Impression: Bilateral pneumonia Chest/Abdomen/Pelvis CTA 06/22/25 08:22 IMPRESSION: 1. Diffuse lung disease, consistent with moderate pulmonary edema without or with superimposed pneumonia. 2. Small pleural effusions. 3. No pulmonary embolus. Venous Doppler Study 06/22/25 09:38 IMPRESSION: 1. No deep venous thrombosis. Renal Ultrasound 06/22/25 09:39 IMPRESSION: 1. No hydronephrosis. Labs Labs: Laboratory Tests 06/24/25 05:04 06/24/25 05:03 Calcium 8.1 L Phosphorus 5.6 H Albumin 3.2 L Microbiology 06/22/25 19:59 Blood Blood Culture - Preliminary 06/22/25 19:59 Blood Blood Culture - Preliminary
[2025-06-24 12:08] LABS: Albumin 3.0 g/dL (2.9-4.4); Alpha-1-Globulin 0.3 g/dL (0.0-0.4); Alpha-2-Globulin 0.7 g/dL (0.4-1.0); Gamma Globulin 1.6 g/dL (0.4-1.8)
--- NOTE | 2025-06-24 13:13 | PM.IMPN ---
Progress Note: A&P Assessment and Plan (1) Volume overload: Code(s): E87.70 - Fluid overload, unspecified Status: Acute Assessment and Plan: The patient presents with SOB and fluid overload. CXR showing bilateral PNA CTA Ch/Abd/pelvis showing diffuse lung disease c/w pulm edema and possible PNA with small pleural effusions, No PE. EKG showing short ME interval but otherwise normal Troponin negative x2. BNP 2870. TCK 142. No recent viral symptoms to suggest myocarditis or post-strep. Could be related to ERIC. Echo normal with EF 65-70% and normal diastolic fxn. Patient started on IV Lasix. UOP not being measured but she feels better. Weights not accurate. Follow her clinically. (2) Acute kidney injury: Code(s): N17.9 - Acute kidney failure, unspecified Status: Acute Assessment and Plan: Cr elevated at 1.76 with BUN 29. Metabolic nongap acidosis noted felt related to under secretion of acids and ketones UA showing 3+ protein, 1+ ketones, 3+ blood (11=20 RBCs), 3+ LE, >100 WBC. UPreg negative. UPr/Cr 0.21gm. FEurea 17%. HIV negative. Hepatitis panel negative. Total Compl <18, C3 <40 and C4 27. RF <12. UDS negative. PT/PTT normal. ESR 50. DDimer positive at 1.34 --> CTA negative for PE; Doppler negative for DVT. Kessler/WHEELCHAIR DRIVER Ab, ANCA panel, ds-DNA, anti-cardiolipin Ab all are negative. Renal US showing normal findings. BCx pending Anti-Streptolysis O Ab elevated at 879 Consider post-strep GN; SLE, IgA nephropathy, rapidly progressive GN, Vasculitis induced GN seem less likely now. Discussed at length with nephrology. Nephrology recommended one more day of IV Lsix then home tomorrow with close follow-up. (3) Proteinuria: Qualifiers: Proteinuria type: unspecified Qualified Code(s): R80.9 - Proteinuria, unspecified Code(s): R80.9 - Proteinuria, unspecified Status: Acute Assessment and Plan: As above (4) Leukocytosis: Qualifiers: Leukocytosis type: unspecified Qualified Code(s): D72.829 - Elevated white blood cell count, unspecified Code(s): D72.829 - Elevated white blood cell count, unspecified Status: Acute Assessment and Plan: WBC elevated on admission. UA noted and would consider UTI but she denies symptoms. WBC trending down now BCx pending UCx pending Holding off on abx unless Cx return positive. (5) Elevated blood pressure reading: Code(s): R03.0 - Elevated blood-pressure reading, without diagnosis of hypertension Status: Acute Assessment and Plan: BP noted on admission felt related to fluid overload Lasix started with good UOP BP better and will follow for now (6) Anemia: Code(s): D64.9 - Anemia, unspecified Status: Acute Assessment and Plan: Patient with Hgb 10 on admission. Not clear if she has a baseline anemia and/or related to above. B12/Folate normal. Iron low at 19, normal TIBC and ISat 6%. Ferritin low end of normal at 35 consisent with iron deficiency anemia. Iron added. Follow HH for now Transfuse to stable Hgb Plan DVT Prophylaxis - lovenox Code status - full Subjective Date/time seen: 06/24/25 13:13 Interval history: 25 year female with no known past medical history of obesity who presented to the ER with 3 days of shortness of breath and lower extremity swelling. No complaints. She still feels SOB with exertion. No CP. Still with excellent UOP. Exam Narrative: AF 98.3 136/85 75 16 93% ra Gen - NARD Chest - CTA bilaterally, nml RR CV - RRR S1/S2 Abd - Soft, NT/ND, Positive BS Ext - No pedal edema Psych - Nml mood and affect Skin - Warm and dry Objective Data Vital Signs Vital Signs: Vital Signs - 24 hr 06/23/25 14:00 06/23/25 16:01 06/23/25 20:00 Temperature 98.0 F Pulse Rate 81 72 72 Respiratory Rate 16 16 Blood Pressure 151/90 H Pulse Oximetry 97 97 Oxygen Delivery Room Air 06/23/25 20:00 06/23/25 22:00 06/24/25 00:00 Temperature 98.7 F Pulse Rate 72 78 86 Respiratory Rate 16 Blood Pressure 147/90 H Pulse Oximetry 94 Oxygen Delivery 06/24/25 03:56 06/24/25 06:00 06/24/25 08:00 Temperature 98.3 F Pulse Rate 80 82 Respiratory Rate 16 Blood Pressure 136/85 Pulse Oximetry 93 Oxygen Delivery Room Air 06/24/25 08:00 Temperature Pulse Rate 75 Respiratory Rate Blood Pressure Pulse Oximetry Oxygen Delivery Intake/Output Intake/Output: Intake & Output 06/21/25 06/22/25 06/23/25 06/24/25 23:59 23:59 23:59 23:59 Intake Total 1999 1420 1460 Balance 1999 1420 1460 Meds/Results Medications: Active Medications Generic Name Dose Route Start Last Admin Trade Name Freq PRN Reason Stop Dose Admin Acetaminophen 650 mg 06/21/25 23:24 06/22/25 08:47 Acetaminophen 325 Mg Tablet PO 650 mg Q4H PRN Administration Mild Pain (1-3) or Fever Calcium Carbonate 200 mg 06/21/25 23:24 Calcium Carbonate (Tums) 500 Mg (200 Mg Elemental) PO Q6H PRN Indigestion Enoxaparin Sodium 40 mg 06/22/25 09:00 06/24/25 08:16 Enoxaparin 40 Mg/0.4 Ml Syringe SUB-Q 40 mg DAILY SHANTELL Administration Ferrous Sulfate 325 mg 06/23/25 09:00 06/24/25 08:15 Ferrous Sulfate 325 Mg Tablet PO 325 mg BID SHANTELL Administration Furosemide 40 mg 06/22/25 09:00 06/24/25 08:15 Furosemide Inj 40 Mg/4 Ml Vial IV PUSH 40 mg Q12HR SHANTELL Administration Morphine Sulfate 2 mg 06/21/25 22:46 06/21/25 23:27 Morphine Sulfate (*Crx) 4 Mg/Ml Inj IV PUSH 2 mg Q4H PRN Administration Pain Rated 7-10 Perflutren Lipid Microsphere 0 ml 06/21/25 17:58 Perflutren Lipid Microspheres 1.5 Ml Vial Diluted To 10 Ml Total Volume IV PUSH 06/24/25 18:01 ONCE PRN adequate visualization Protocol Radiology Results: ITS Impressions Chest X-Ray 06/21/25 16:29 Impression: Bilateral pneumonia Chest/Abdomen/Pelvis CTA 06/22/25 08:22 IMPRESSION: 1. Diffuse lung disease, consistent with moderate pulmonary edema without or with superimposed pneumonia. 2. Small pleural effusions. 3. No pulmonary embolus. Venous Doppler Study 06/22/25 09:38 IMPRESSION: 1. No deep venous thrombosis. Renal Ultrasound 06/22/25 09:39 IMPRESSION: 1. No hydronephrosis. Labs Labs: Laboratory Results - last 24 hr 06/22/25 06/22/25 06/22/25 06:01 06:07 09:03 WBC RBC Hgb Hct MCV MCH MCHC RDW Plt Count MPV Immature Gran % (Auto) Neut % (Auto) Lymph % (Auto) [place] % (Auto) Eos % (Auto) Baso % (Auto) Lymph # (Auto) [place] # (Auto) Eos # (Auto) Baso # (Auto) Abs Immat Gran (auto) Absolute Neuts (auto) Absolute Nucleated RBC Nucleated RBC % Sodium Potassium Chloride Carbon Dioxide Anion Gap BUN Creatinine Estim Creat Clear Calc Estimated GFR Glucose Calcium Phosphorus Total Protein (PEP) Albumin Albumin (PEP) Globulin (PEP) Albumin/Globulin Ratio Zaqwl-0-Niqeekbmv Orgvz-1-Jjvovibdt Beta Globulins Gamma Globulins PEP Comment Pr Electrophoresis MSpike Double Strand DNA Ab <1 Tot Complement (CH50) <18 L Anti-Streptolysin O Ab 879.3 H Miscellaneous Test Comment 06/23/25 06/24/25 06/24/25 05:42 05:03 05:04 WBC 10.4 H RBC 3.83 L Hgb 9.9 L Hct 31.9 L MCV 83.3 MCH 25.8 L MCHC 31.0 L RDW 15.1 H Plt Count 331 MPV 11.4 H Immature Gran % (Auto) 0.5 Neut % (Auto) 57.6 Lymph % (Auto) 26.5 [place] % (Auto) 11.6 H Eos % (Auto) 3.1 Baso % (Auto) 0.7 Lymph # (Auto) 2.76 [place] # (Auto) 1.2 H Eos # (Auto) 0.3 Baso # (Auto) 0.1 Abs Immat Gran (auto) 0.05 H Absolute Neuts (auto) 6.0 Absolute Nucleated RBC 0.000 Nucleated RBC % 0.0 Sodium 137 Potassium 4.2 Chloride 108 H Carbon Dioxide 22 Anion Gap 7 BUN 23 H Creatinine 1.24 H Estim Creat Clear Calc 64 Estimated GFR 54 L Glucose 94 Calcium 8.1 L Phosphorus 5.6 H Total Protein (PEP) 6.4 Albumin 3.2 L Albumin (PEP) 3.0 Globulin (PEP) 3.4 Albumin/Globulin Ratio 0.9 Wprgu-6-Ldtrcdcpj 0.3 [place]-6-Shyxdkfsa 0.7 Beta Globulins 0.8 Gamma Globulins 1.6 PEP Comment Comment Pr Electrophoresis MSpike Not observed Double Strand DNA Ab Tot Complement (CH50) Anti-Streptolysin O Ab Miscellaneous Test
[2025-06-24 18:08] LABS: Anti-GBM Antibodies <0.2 units (0.0-0.9)
[2025-06-24 19:08] LABS: ANA by IFA Rfx Titer/Pattern Negative (.)
[2025-06-25] VITALS: PULSE 72
[2025-06-25 04:00] VITALS: PULSE 84
[2025-06-25 06:00] VITALS: BP 147/98; PULSE 84; RESP 18; TEMP 36.4; O2SAT 94
[2025-06-25 07:02] LABS: Anion Gap 7 mmol/L (4-12); Blood Urea Nitrogen 19 mg/dL (7-17); Calcium 8.2 mg/dL (8.4-10.2); Carbon Dioxide 22 mmol/L (22-30); Chloride 108 mmol/L (98-107); Estimated CRCL calculation 67 ml/min; Estimated Glomerular Filt Rate 58; Glucose 88 mg/dL (65-110); Potassium 4.2 mmol/L (3.4-5.0); Sodium 137 mmol/L (137-145)
[2025-06-25 08:00] VITALS: PULSE 65
--- NOTE | 2025-06-25 08:07 | PM.PNNEP ---
Progress Note: A&P Assessment and Plan (1) Acute kidney injury: Code(s): N17.9 - Acute kidney failure, unspecified Status: Acute Assessment and Plan: presumably normal baseline renal function etiology not clear: new CHF inflammatory disorder (autoimmune disease/vasculitis/glomerulonephritis?) other(?) evaluation to date noted: renal ultrasound normal urine electrolytes prerenal urine eosinophils negative serologies as noted UA with blood and protein along with possible infection only 210mg of proteinuria elevated ESR and CRP serologies testing to date: HIV negative hepatitis panel negative C4 normal, C3 and CH50 low ANCA negative DAWN pending but dsDNA-Ab negative Kessler/RETAIL WIRELESS SALES REPRESENTATIVE Ab and anti-cardiolipin Ab negative antiGBM negative RF negative SPEP negative UPEP and serum/urine immunofixation pending Anti-Streptolysis O Ab elevated at 879 possible post strep GN..her low C3 level suggestive as well however, no clinical history of strep infection... continues supportive therapy follow trend of repeat labs and UOP (2) Volume overload: Code(s): E87.70 - Fluid overload, unspecified Status: Acute Assessment and Plan: etiology(?): due to CHF from kidney failure other(?) CHF suggested by admission imaging/testing/exam: CXR/CT with pleural effusions and pulmonary edema elevated BNP LE edema present SOB with orthopnea + PND however, Echo results noted: left ventricular systolic function is normal, estimated at 65 - 70% left ventricular diastolic function is normal no aortic valve stenosis or regurgitation no mitral valve stenosis or regurgitation no tricuspidvalve stenosis or regurgitation. mild pulmonic regurgitation trivial pericardial effusion on IV diuretics - continue for one more day follow I/Os, daily weights, and clinical exam (3) Pleural effusion: Code(s): J90 - Pleural effusion, not elsewhere classified Status: Acute Assessment and Plan: as noted on admission imaging follow serial CXRs and respiratory status (4) Anemia: Code(s): D64.9 - Anemia, unspecified Status: Acute Assessment and Plan: due to renal dysfunction versus acute ilness... anemia studies consistent with iron deficiency started on oral iron follow trend of H/H (5) Urinary tract infection: Code(s): N39.0 - Urinary tract infection, site not specified Status: Acute Assessment and Plan: admission UA suggestive however, no clinical symptoms follow culture data holding off on antibiotic therapy (6) Elevated blood pressure reading: Code(s): R03.0 - Elevated blood-pressure reading, without diagnosis of hypertension Status: Acute Assessment and Plan: as noted on admission may improve with diuresis follow trend of hemodynamics (7) Leukocytosis: Qualifiers: Leukocytosis type: unspecified Qualified Code(s): D72.829 - Elevated white blood cell count, unspecified Code(s): D72.829 - Elevated white blood cell count, unspecified Status: Acute Assessment and Plan: due to possible underlying infection inflammatory response? follow culture data r/o infection holding antibiotics at this time Not opposed to discharge from renal perspective -- recommend follow-up with PCP in 1 - 2 weeks to re-assess kidney function and volume status. Will continue to follow. Subjective Date/time seen: 06/25/25 08:07 Interval history: Follow-up for acute kidney injury/acute renal failure. Renal function/creatinine as well as swelling/edema along with shortness of breath continue to improve with current therapy/interventions; no other issues/events overnight or earlier this morning; no apparent distress noted. Exam Narrative: General: WD/WN female in NAD Heart: normal S1 and S2; no rub Lungs: clear anteriorly Abdomen: soft, nontender, nondistended, positive bowel sounds Extremities: no cyanosis or clubbing; minimal edema Skin: no rash or nodules Objective Data Vital Signs Vital Signs: Vital Signs Temp Pulse Resp BP Pulse Ox O2 Del Method 06/25/25 08:00 65 06/25/25 06:00 97.5 F L 84 18 147/98 H 94 06/25/25 04:00 84 06/25/25 00:00 72 06/24/25 22:51 130 H 06/24/25 22:00 97.3 F L 90 18 145/91 H 93 06/24/25 20:00 90 06/24/25 20:00 Room Air 06/24/25 16:00 73 06/24/25 13:50 98.2 F 82 16 146/89 H 94 Intake/Output Intake/Output: Intake & Output 06/22/25 06/23/25 06/24/25 06/25/25 23:59 23:59 23:59 23:59 Intake Total 1999 1420 2250 1500 Balance 1999 1420 2250 1500 Meds/Results Medications: Active Medications Generic Name Dose Route Start Last Admin Trade Name Freq PRN Reason Stop Dose Admin Acetaminophen 650 mg 06/21/25 23:24 06/22/25 08:47 Acetaminophen 325 Mg Tablet PO 650 mg Q4H PRN Administration Mild Pain (1-3) or Fever Calcium Carbonate 200 mg 06/21/25 23:24 Calcium Carbonate (Tums) 500 Mg (200 Mg Elemental) PO Q6H PRN Indigestion Enoxaparin Sodium 40 mg 06/22/25 09:00 06/25/25 09:34 Enoxaparin 40 Mg/0.4 Ml Syringe SUB-Q 40 mg DAILY SHANTELL Administration Ferrous Sulfate 325 mg 06/23/25 09:00 06/25/25 09:34 Ferrous Sulfate 325 Mg Tablet PO 325 mg BID SHANTELL Administration Furosemide 40 mg 06/22/25 09:00 06/25/25 09:34 Furosemide Inj 40 Mg/4 Ml Vial IV PUSH 40 mg Q12HR SHANTELL Administration Morphine Sulfate 2 mg 06/21/25 22:46 06/21/25 23:27 Morphine Sulfate (*Crx) 4 Mg/Ml Inj IV PUSH 2 mg Q4H PRN Administration Pain Rated 7-10 Radiology Results: ITS Impressions Chest X-Ray 06/21/25 16:29 Impression: Bilateral pneumonia Chest/Abdomen/Pelvis CTA 06/22/25 08:22 IMPRESSION: 1. Diffuse lung disease, consistent with moderate pulmonary edema without or with superimposed pneumonia. 2. Small pleural effusions. 3. No pulmonary embolus. Venous Doppler Study 06/22/25 09:38 IMPRESSION: 1. No deep venous thrombosis. Renal Ultrasound 06/22/25 09:39 IMPRESSION: 1. No hydronephrosis. Labs Labs: Laboratory Tests 06/24/25 05:04 06/25/25 05:20 Calcium 8.2 L Microbiology 06/22/25 09:59 Unspecified Urine Urine Culture - Final 06/22/25 19:59 Blood Blood Culture - Preliminary 06/22/25 19:59 Blood Blood Culture - Preliminary
--- NOTE | 2025-06-25 08:07 | P.PNNP_ITS ---
Progress Note: A&P Assessment and Plan (1) Acute kidney injury: Code(s): N17.9 - Acute kidney failure, unspecified Status: Acute Assessment and Plan: * presumably normal baseline renal function * etiology not clear: * new CHF * inflammatory disorder (autoimmune disease/vasculitis/glomerulonephritis?) * other(?) * evaluation to date noted: * renal ultrasound normal * urine electrolytes prerenal * urine eosinophils negative * serologies as noted * UA with blood and protein along with possible infection * only 210mg of proteinuria * elevated ESR and CRP * serologies testing to date: * HIV negative * hepatitis panel negative * C4 normal, C3 and CH50 low * ANCA negative * DAWN pending but dsDNA-Ab negative * Kessler/TREATING PLANT PUMPER Ab and anti-cardiolipin Ab negative * antiGBM negative * RF negative * SPEP negative * UPEP and serum/urine immunofixation pending * Anti-Streptolysis O Ab elevated at 879 * possible post strep GN..her low C3 level suggestive as well * however, no clinical history of strep infection... * continues supportive therapy * follow trend of repeat labs and UOP (2) Volume overload: Code(s): E87.70 - Fluid overload, unspecified Status: Acute Assessment and Plan: * etiology(?): * due to CHF * from kidney failure * other(?) * CHF suggested by admission imaging/testing/exam: * CXR/CT with pleural effusions and pulmonary edema * elevated BNP * LE edema present * SOB with orthopnea + PND * however, Echo results noted: * left ventricular systolic function is normal, estimated at 65 - 70% * left ventricular diastolic function is normal * no aortic valve stenosis or regurgitation * no mitral valve stenosis or regurgitation * no tricuspidvalve stenosis or regurgitation. * mild pulmonic regurgitation * trivial pericardial effusion * on IV diuretics - continue for one more day * follow I/Os, daily weights, and clinical exam (3) Pleural effusion: Code(s): J90 - Pleural effusion, not elsewhere classified Status: Acute Assessment and Plan: * as noted on admission imaging * follow serial CXRs and respiratory status (4) Anemia: Code(s): D64.9 - Anemia, unspecified Status: Acute Assessment and Plan: * due to renal dysfunction versus acute ilness... * anemia studies consistent with iron deficiency * started on oral iron * follow trend of H/H (5) Urinary tract infection: Code(s): N39.0 - Urinary tract infection, site not specified Status: Acute Assessment and Plan: * admission UA suggestive * however, no clinical symptoms * follow culture data * holding off on antibiotic therapy (6) Elevated blood pressure reading: Code(s): R03.0 - Elevated blood-pressure reading, without diagnosis of hypertension Status: Acute Assessment and Plan: * as noted on admission * may improve with diuresis * follow trend of hemodynamics (7) Leukocytosis: Qualifiers: Leukocytosis type: unspecified Qualified Code(s): D72.829 - Elevated white blood cell count, unspecified Code(s): D72.829 - Elevated white blood cell count, unspecified Status: Acute Assessment and Plan: * due to possible underlying infection inflammatory response? * follow culture data * r/o infection * holding antibiotics at this time Not opposed to discharge from renal perspective -- recommend follow-up with PCP in 1 - 2 weeks to re-assess kidney function and volume status. Will continue to follow. L Subjective Date/time seen: 06/25/25 08:07 Interval history: Follow-up for acute kidney injury/acute renal failure. Renal function/creatinine as well as swelling/edema along with shortness of breath continue to improve with current therapy/interventions; no other issues/events overnight or earlier this morning; no apparent distress noted. Exam 2 Narrative: General: WD/WN female in NAD Heart: normal S1 and S2; no rub Lungs: clear anteriorly Abdomen: soft, nontender, nondistended, positive bowel sounds Extremities: no cyanosis or clubbing; minimal edema Skin: no rash or nodules Objective Data Vital Signs Vital Signs: Vital Signs Temp Pulse Resp BP Pulse Ox O2 Del Method 06/25/25 08:00 65 06/25/25 06:00 97.5 F L 84 18 147/98 H 94 06/25/25 04:00 84 06/25/25 00:00 72 06/24/25 22:51 130 H 06/24/25 22:00 97.3 F L 90 18 145/91 H 93 06/24/25 20:00 90 06/24/25 20:00 Room Air 06/24/25 16:00 73 06/24/25 13:50 98.2 F 82 16 146/89 H 94 Intake/Output Intake/Output: Intake & Output 06/22/25 06/23/25 06/24/25 06/25/25 23:59 23:59 23:59 23:59 Intake Total 1999 1420 2250 1500 Balance 1999 1420 2250 1500 Meds/Results Medications: Active Medications Generic Name Dose Route Start Last Admin Trade Name Freq PRN Reason Stop Dose Admin Acetaminophen 650 mg 06/21/25 23:24 06/22/25 08:47 Acetaminophen 325 Mg Tablet PO 650 mg Q4H PRN Administration Mild Pain (1-3) or Fever Calcium Carbonate 200 mg 06/21/25 23:24 Calcium Carbonate (Tums) 500 Mg (200 Mg Elemental) PO Q6H PRN Indigestion Enoxaparin Sodium 40 mg 06/22/25 09:00 06/25/25 09:34 Enoxaparin 40 Mg/0.4 Ml Syringe SUB-Q 40 mg DAILY SHANTELL Administration Ferrous Sulfate 325 mg 06/23/25 09:00 06/25/25 09:34 Ferrous Sulfate 325 Mg Tablet PO 325 mg BID SHANTELL Administration Furosemide 40 mg 06/22/25 09:00 06/25/25 09:34 Furosemide Inj 40 Mg/4 Ml Vial IV PUSH 40 mg Q12HR SHANTELL Administration Morphine Sulfate 2 mg 06/21/25 22:46 06/21/25 23:27 Morphine Sulfate (*Crx) 4 Mg/Ml Inj IV PUSH 2 mg Q4H PRN Administration Pain Rated 7-10 Radiology Results: ITS Impressions Chest X-Ray 06/21/25 16:29 Impression: Bilateral pneumonia Chest/Abdomen/Pelvis CTA 06/22/25 08:22 IMPRESSION: 1. Diffuse lung disease, consistent with moderate pulmonary edema without or with superimposed pneumonia. 2. Small pleural effusions. 3. No pulmonary embolus. Venous Doppler Study 06/22/25 09:38 IMPRESSION: 1. No deep venous thrombosis. Renal Ultrasound 06/22/25 09:39 IMPRESSION: 1. No hydronephrosis. Labs Labs: Laboratory Tests 06/24/25 05:04 06/25/25 05:20 Calcium 8.2 L Microbiology 06/22/25 09:59 Unspecified Urine Urine Culture - Final 06/22/25 19:59 Blood Blood Culture - Preliminary 06/22/25 19:59 Blood Blood Culture - Preliminary
[2025-06-25] MEDS: FERROUS SULFATE 325 MG TABLET PO (09:34)
[2025-06-25] MEDS: FUROSEMIDE INJ 40 MG/4 ML VIAL IV PUSH (09:34)
[2025-06-25] MEDS: ENOXAPARIN 40 MG/0.4 ML SYRINGE SUB-Q (09:34)
[2025-06-25 10:09] LABS: Immunoglobulin A, Qn 240 mg/dL (87-352); Immunoglobulin G, Qn 1704 mg/dL (586-1602); Immunoglobulin M, Qn 178 mg/dL (26-217)
--- NOTE | 2025-06-25 10:33 | P.DS_ITS ---
DS: Admitting Diagnosis Discharge Date 06/25/25 Admitting Diagnosis Shortness of Breath Leg Swelling DS: Discharge Diagnosis Discharge Diagnosis (1) Volume overload: Code(s): E87.70 - Fluid overload, unspecified Status: Acute (2) Acute kidney injury: Code(s): N17.9 - Acute kidney failure, unspecified Status: Acute (3) Proteinuria: Qualifiers: Proteinuria type: unspecified Qualified Code(s): R80.9 - Proteinuria, unspecified Code(s): R80.9 - Proteinuria, unspecified Status: Acute (4) Anemia: Code(s): D64.9 - Anemia, unspecified Status: Acute (5) Leukocytosis: Qualifiers: Leukocytosis type: unspecified Qualified Code(s): D72.829 - Elevated white blood cell count, unspecified Code(s): D72.829 - Elevated white blood cell count, unspecified Status: Acute (6) Pleural effusion: Code(s): J90 - Pleural effusion, not elsewhere classified Status: Acute DS: Summary Hospital Course Reason for hospitalization: SOB Leg Swelling Hospital Course: 25 year female with no known past medical history of obesity who presented to the ER with 3 days of shortness of breath and lower extremity swelling. Patient was found to have pleural effusion, lower extremity edema. Patient was started on IV Lasix. Nephrology was consulted. was found to have ERIC. Renal ultrasound was unremarkable. Tested negative for HIV, hepatitis panel, C4 was normal, C3 and CH50 was low, Anca was negative, double-stranded DNA antibody was negative, Kessler/PREFINISH OPERATOR antibody, anti cardiolipin antibody was negative, rheumatoid factor was negative. SPEP negative. Also had leukocytosis but no evidence of infection. Was started on iron supplementation for anemia. Her symptoms improved. Her ERIC has resolved. Patient is being discharged home in stable condition with advice to follow-up with nephrology as an outpatient. Status at Discharge Functional status at discharge: independent ambulation Overall status at discharge: patient is back to baseline Time Spent with Patient Time attestation: Total time spent providing and/or coordinating discharge services: 32 minutes Exam Narrative: Gen -no acute distress Chest -chest x-ray clear to auscultation bilaterally CV -normal sinus rhythm Abd - Soft, NT/ND, Positive BS Ext - No pedal edema Psych - Nml mood and affect Skin - Warm and dry DS: Data Data Completed and Pending Labs on day of discharge: Labs from last 24 hours 06/25/25 06/23/25 06/22/25 05:20 05:42 06:10 Sodium 137 Potassium 4.2 Chloride 108 H Carbon Dioxide 22 Anion Gap 7 BUN 19 H Creatinine 1.16 H Estim Creat Clear Calc 67 Estimated GFR 58 L Glucose 88 Calcium 8.2 L Total Protein (PEP) 6.4 Albumin (PEP) 3.0 Globulin (PEP) 3.4 Albumin/Globulin Ratio 0.9 Kpmen-8-Mgugjcsih 0.3 Sxqqs-9-Hsyjsvhoy 0.7 Beta Globulins 0.8 Gamma Globulins 1.6 PEP Comment Comment IgG 1704 H IgA 240 IgM 178 Pr Electrophoresis MSpike Not observed EMILY Interpretation Comment DAWN Screen Negative Glomerular Base Memb Ab Anti-DNase B (Strep) 555 H 06/22/25 06:01 Sodium Potassium Chloride Carbon Dioxide Anion Gap BUN Creatinine Estim Creat Clear Calc Estimated GFR Glucose Calcium Total Protein (PEP) Albumin (PEP) Globulin (PEP) Albumin/Globulin Ratio Qleuz-4-Zmooynrmk Lcnjm-8-Ubnkirypj Beta Globulins Gamma Globulins PEP Comment IgG IgA IgM Pr Electrophoresis MSpike EMILY Interpretation DAWN Screen Glomerular Base Memb Ab <0.2 Anti-DNase B (Strep) Preliminary micro results at discharge 06/22/25 19:59 Blood Culture - Preliminary Blood 06/22/25 19:59 Blood Culture - Preliminary Blood Discharge Plan Discharge Attending physician on discharge: Patricia Suggs Consulting providers: Zenia Izquierdo Discharging Clinician: Patricia Suggs Anticipated Discharge Date/Time: 06/25/25 10:32 Patient Disposition: Home Activity: as tolerated Diet: regular Patient Instructions: Antibiotic Form Patient Language: Bangladeshi Stand Alone Forms: General Discharge Information Follow-up/Referrals: Zenia Izquierdo MD [Physician, Nephrology] - 2 Weeks Discharge Medications: New ferrous sulfate 325 mg (65 mg iron) Tablet,Delayed Release (Dr/Ec) 325 mg PO BID Qty: 60 0RF No Action No Home Medications Date of admission: 06/23/25 15:01 Primary Care Provider: PHYSICIAN NOT ON STAFF,NONSTAFF Admitting Provider: Alireza Lopez Attending physician on admission: Alireza Lopez Condition: Improved
--- NOTE | 2025-06-25 11:01 | WPDCDIQUERY2 ---
CDI Query Clarification Request Please clarify if pneumonia has been ruled in or ruled out. Assessment and Plan (1) Volume overload: Code(s): E87.70 - Fluid overload, unspecified Status: Acute Assessment and Plan: The patient presents with SOB and fluid overload. CXR showing bilateral PNA CTA Ch/Abd/pelvis showing diffuse lung disease c/w pulm edema and possible PNA with small pleural effusions, No PE. EKG showing short MT interval but otherwise normal Troponin negative x2. BNP 2870. TCK 142. No recent viral symptoms to suggest myocarditis or post-strep. Could be related to ERIC. Echo normal with EF 65-70% and normal diastolic fxn. Patient started on IV Lasix. UOP not being measured but she feels better. Weights not accurate. Follow her clinically. CTA: IMPRESSION: 1. Diffuse lung disease, consistent with moderate pulmonary edema without or with superimposed pneumonia. 2. Small pleural effusions. 3. No pulmonary embolus. cxr: Impression: Bilateral pneumonia elevated WBC <Aidee Cheney RN - Last Filed: 06/25/25 11:05> Please clarify if pneumonia has been ruled in or ruled out. ruled out Assessment and Plan (1) Volume overload: Code(s): E87.70 - Fluid overload, unspecified Status: Acute Assessment and Plan: The patient presents with SOB and fluid overload. CXR showing bilateral PNA CTA Ch/Abd/pelvis showing diffuse lung disease c/w pulm edema and possible PNA with small pleural effusions, No PE. EKG showing short MT interval but otherwise normal Troponin negative x2. BNP 2870. TCK 142. No recent viral symptoms to suggest myocarditis or post-strep. Could be related to ERIC. Echo normal with EF 65-70% and normal diastolic fxn. Patient started on IV Lasix. UOP not being measured but she feels better. Weights not accurate. Follow her clinically. CTA: IMPRESSION: 1. Diffuse lung disease, consistent with moderate pulmonary edema without or with superimposed pneumonia. 2. Small pleural effusions. 3. No pulmonary embolus. cxr: Impression: Bilateral pneumonia elevated WBC <Patricia Suggs MD - Last Filed: 06/25/25 11:11>
[2025-06-25 15:09] LABS: Albumin, U 49.7 % (.); Alpha-1-Globulin, U 1.9 % (.); Alpha-2-Globulin, U 11.6 % (.); Beta Globulin, U 16.7 % (.); Gamma Globulin, U 20.2 % (.)
[2025-06-27 15:09] LABS: Osmolality, Serum 288 mOsmol/kg (275-295)
[2025-06-28 18:08] LABS: Hexagonal Phase Phosph YES YES; PTT-LA 55.3 sec (0.0-43.5); PTT-LA Mix YES YES; dRVVT Confirm 1.1 ratio (0.8-1.2); dRVVT Confirm YES YES; dRVVT Mix YES YES
== END 2025-06-25 11:55 | disposition home or self-care (01) | DRG 641 ==
LOC: ANHED 18:05 → ANH3MEDSUR 19:33
PROVIDERS: Internal Medicine; Internal Medicine Nephrology; Admitting Provider Internal Medicine; Emergency Provider General Practice; Visit Provider Internal Medicine
DX: E87.70 Fluid overload, unspecified (principal); N17.9 Acute kidney failure, unspecified; J90 Pleural effusion, not elsewhere classified; J81.1 Chronic pulmonary edema; E87.21 Acute metabolic acidosis; D50.9 Iron deficiency anemia, unspecified; B95.1 Streptococcus, group B, as the cause of diseases classified elsewhere; D72.829 Elevated white blood cell count, unspecified; R03.0 Elevated blood-pressure reading, without diagnosis of hypertension; R80.9 Proteinuria, unspecified; E66.9 Obesity, unspecified; F10.90 Alcohol use, unspecified, uncomplicated; Z72.0 Tobacco use; Z68.37 Body mass index [BMI] 37.0-37.9, adult
CPT/HCPCS: 36415; 71045; 71275; 74177; 76770; 80048; 80053; 80069; 80307; 81001; 81025; 82550; 82570; 82607; 82728; 82746; 82784; 83520; 83540; 83550; 83735; 83880; 83930; 84100; 84155; 84156; 84165; 84166; 84300; 84443; 84484; 84540; 85025; 85027; 85380; 85610; 85613; 85652; 85730; 85732; 85999; 86037; 86038; 86060; 86140; 86147; 86160; 86162; 86215; 86225; 86235; 86334; 86335; 86364; 86430; 86703; 86705; 86706; 86803; 87040; 87086; 87340; 93005; 93306; 93970; 96372; 96374; 96375; 96376; 99285; A9270; G0378; G0432; J1650; J1938; J2270; Q9967